=== PATIENT | female | born 1995 | race Caucasian/White ===

== ENCOUNTER → 2018-05-26 13:17 | Outpatient (CLI) | payer SELFPAY ==
[2018-05-26 15:46] LABS: Hemoglobin A1c 5.1 % (4.2-6.3)
[2018-05-26 16:48] LABS: Estradiol 106.1 pg/mL; Free T3 3.5 pg/mL (2.18-3.98); T4 Free Direct 1.14 ng/dL (0.76-1.46)
[2018-05-26 17:10] LABS: Chlamydia Trachomatis by PCR Negative (Negative); Neisserai gonorrhoeae by PCR Negative (Negative); Probe Check PASS; Sample Adequacy Control PASS; Specimen Processing Control PASS
[2018-05-27 09:16] LABS: Progesterone Level 4.92 ng/mL (See Comment)
== END ==
PROVIDERS: Visit Provider Obstetrics & Gynecology
DX: N39.0 Urinary tract infection, site not specified (principal); N92.6 Irregular menstruation, unspecified; N94.6 Dysmenorrhea, unspecified
CPT/HCPCS: 36415; 82670; 83036; 84144; 84439; 84443; 84481; 87086; 87088; 87491; 87591

== ENCOUNTER → 2021-05-16 16:15 | Outpatient (CLI) | payer OTHER, SELFPAY ==
--- NOTE | 2021-05-16 16:45 | MRI_ITS ---
STUDY: MRI LEFT ANKLE WITHOUT CONTRAST REASON FOR EXAM: Female, 25 years old.LEFT achilles pain, pain across top of foot LEFT ankle pain s/p injury TECHNIQUE: Standardized fat and water weighted pulse sequences were obtained in all 3 orthogonal planes. COMPARISON: None. FINDINGS: No marrow edema or fracture or osteochondral defect is seen. Small posterior ankle joint effusion noted. Normal subcutis adipose space. Normal posterior tibialis tendon. Normal flexor digitorum longus tendon. Normal flexor hallucis longus tendon. Normal peroneus longus and brevis tendons. Normal tibialis anterior tendon. Normal extensor hallucis longus tendon. Normal extensor digitorum longus tendons. Normal Achilles tendon and teno-osseous insertion. Normal plantar fascia. Normal plantar calcaneal tubercles. Normal intrinsic muscles of the rearfoot. Normal distal tibiofibular syndesmotic ligamentous complex. There is a complete rupture of the anterior talofibular ligament (ATFL). Normal subtalar ligaments and sinus tarsi. Normal deltoid ligamentous complexes. Normal plantar calcaneonavicular (spring) ligament. Normal tibiotalar articulation. Normal talar dome. Normal subtalar articulations. Normal talonavicular articulation. Normal calcaneocuboid articulation. Normal navicular-cuneiform articulations. MRI/Lower Ext Joint Only (Routine) IMPRESSION: 1. No marrow edema or fracture or osteochondral defect is seen. Small posterior ankle joint effusion noted. 2. Complete tear of the anterior talofibular ligament. Electronically Signed: Ty Cerna MD at 19:47 EDT , Service support ,
== END ==
PROVIDERS: Referring Provider Podiatrist Foot & Ankle Surgery; Visit Provider Podiatrist Foot & Ankle Surgery
DX: M65.272 Calcific tendinitis, left ankle and foot (principal); M77.52 Other enthesopathy of left foot and ankle
CPT/HCPCS: 73721

== ENCOUNTER 2021-05-26 17:30 | Outpatient (RCR) | payer OTHER, SELFPAY ==
--- NOTE | 2021-02-17 13:09 | HP.PTEVAL_ITS ---
Patient's Visit Information BASIL MEDINA is a 25 year old F referred to Physical Therapy by Dr. Odalis Aguila DPM with a diagnosis of L Achillies tendonitis. Date of Evaluation: 02/12/21 Physical Therapist: Yariel Nava DPT - Visit Plan Frequency: 2-3x /Week Duration: 4-6 Weeks Plan: Start with AROM of L ankle, DF stretching, ankle strengtening progressing to eccentric plantar flexion strengthening as tolerated. May use US/Dn to aid with pain control. Progress gait mechanics as tolerated. - Subjective Pt. is here today for her initial evaluation with diagnosis of L Achilles tendinitis. Pt. reports pain started in november when she had to stand on her L foot for ~8 hours during a work day. 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 She works at [employer] in the [place]. She is still working, but most a sit down job now. She reports prior to injury she was very active including biking, hiking, running. Now is not able to complete these activities. She is currently in a CAM boot, but is to start working into [employer] brace as tolerated. IMAGING: Xrays- negative, MRI: not take. MEDICATIONS: ibuprophen OTC. She c/o increased pain at distal Achilles and anterior talocrural joint. INCREASES PAIN: walking, standing, aggressive DF stretching, resting her leg on a firm surface. Pt. denies N/T. No bruising noted, no significant swelling noted. She has been stretching lightly and working on isometric ankle strengthening. She is hopeful to reduce symptom in order to get back to all recreational and work activities without limitations. - Pain L Achillies Pain Intensity (Out of 10): 3 Pain Intensity Range: 1, 5 L anterior talocrural joint Pain Intensity (Out of 10): 2 Pain Intensity Range: 1, 5 - Objective POSTURE: Pt. to has decent posture in stance. Pt. does have increased R lateral wt. shifting. She is hesitant to increase DF motion with wt. shifting. PALPATION: Pt. has high tenderness at distal Achilles tendon, along lateral ligaments of ankle and anterior talocrural joint. No deltoid lig pain, no p roximal pain. NEURO: Pt. has normal sensation, slightly hyper sensitive at lateral and anterior ankle. Normal DTR of bilateral achilles and patellar tendons. ROM: R ankle full without increase in symptoms. L ankle: DF 3 deg, PF 39deg, INV 6deg, EVR 10deg. KNee ROM- 0-0-140deg no pain. MMT: R ankle 5/5 throughout. L ankle- DF 3/5 increase NW, PF 4/5 increase NW, INV 3+/5 increase NW, EVR 3+/5 increase NW. L knee: ext 5-/5 NE, flexion 5-/5 NE. GAIT: Pt. ambulates with ASO today. Pt. lacks any rocker moment from mid foot to forefoot on he L side, resulting in minimal step through of RLE. Pt. has increased knee hyper extension during last phase of mid stance. Pt. reports increased pain both at anterior talocrural joint and at distal Achillies tendon during end range of mid stance and heel off phase. STAIRS: step to pattern only WBing through RLE, both with ascending and dsecending. Use of BHR. - Goals Goal 1:: LTG: Pt. to be I with HEP. Goal Time Frame: 2-4 Weeks Goal 2:: STG: Pt. to walk without AD without brace for unlimited distances without increase in symptoms. Goal Time Frame: 2-4 Weeks Goal 3:: STG: Pt. to ambulate with equal step length and normalized gait pattern without increase in symptoms. Goal Time Frame: 2-4 Weeks Goal 4:: STG: Pt. to have increased L ankle ROM to full without increase in symptoms. Goal Time Frame: 2-4 Weeks Goal 5:: LTG: pt. to have increased MMT of L ankle to 5/5 throughout without increase in symptoms. Goal Time Frame: 4-6 Weeks Goal 6:: LTG: Pt. to resume all work activities without increase in symptoms. Goal Time Frame: 4-6 Weeks - Rehabilitation Potential Physical Therapy Diagnosis: Pt. has signs and symptoms consistent with L Achilles tendinitis. Pt. has marked limited ROM, strength and difficulty with walking. She would benefit from PT to increase her ROM and strength in order to increase tolerance to walking and work related activities. Rehabilitation Potential: Excellent - Anticipated Interventions Patient/Client Instruction: Educate patient on: Condition, Plan of Care, Risk Factors, Benefits of Fitness Program For the Purpose of:: To improve decision making, To facilitate caregiver knowledge, To improve self management, To prevent re-injury, To improve ability to perform tasks related to life management Therapeutic Exercise to Include: Strength training, Power training, Balance training, Flexibilty training, Gait and locomotor training, Passive ROM, Active ROM For the Purpose of:: To decrease pain, To decrease swelling/inflammation, To increase ROM, To improve nutrient delivery to tissue, To increase oxygenation perfusion, To improve ability to perform ADL's, To increase tolerance to activity/condition/position, To improve gait and locomotor functions, To improve health of tissue, To decrease soft tissue restriction, To increase flexibility/ROM Manual Therapy Techniques to Include: Mobilization, Functional dry needling, Soft tissue mobilization For the Purpose of:: To increase ROM, To improve nutrient delivery to tissue, To improve gait and locomotor functions, To improve health of tissue, To decrease soft tissue restriction, To improve endurance Ultrasound (thermal/non thermal): Yes For the Purpose of:: To decrease pain, To decrease swelling/inflammation, To increase ROM Thank you for the opportunity to evaluate your patient. For Medicare and Medicare HMO plans, please review the plan of care and approve it. It will need to be FAXED BACK to us at [phone] for Medicare purposes. For Medicare only, by signing this I certify the plan of care. Please let me know if there are questions or concerns regarding this plan of care. Physician Signature: Date:
--- NOTE | 2021-03-12 17:54 | HP.PTREVAL_ITS ---
Dr. Odalis Aguila, DPM, It has been my pleasure to treat BASIL MEDINA over the last 12 visits for L Achillies tendonitis. Please see the progress note below for an update on the physical therapy plan of care! Subjective: Pt. reports having improved overall symptoms, but is still having some trouble with standing and walking. She reports having some pain in her Achilles, but is having more pain at the anterior aspect of her talocrural joint. Pt. tends to have increased pain at anterior aspect of ankle with increased DF motions, both open chain and closed. She is back to work, but limited with her recreational activities. Objective/Function: ROM: L ankle PF 44deg NE, DF 8deg mild increase NW at both achilles and anterior aspect of talocrural joint, inversion 17deg, EVR 12deg. MMT: L ankle: PF 4+/5 mild increase NE, DF 4+/5 increase NW, INV 4+/5, EVR 4+/5. 5/5 foot intrinsics of foot. 5-/5 B knee musculature. GAIT: Pt. has improved step length bilaterally being step through on both. Pt. has increased anterior ankle pain with increased R step through (L pre swing phase). She is doing less L knee hyper extension to make up for lack of L ankle DF. Descending steps in still painful, mostly anterior ankle. Pt. is overlal doing better, but is very apprehensive with increased walking and increased resistnaces with reports of having flare up when tried this at alternate facility. Pt. is to follow up with physician later this week. Plan Plan: Continue to strengthen the ankle/foot musculature and increase her tolerance to DF. Goals Goal 1:: LTG: Pt. to be I with HEP. Goal Time Frame: 2-4 Weeks Goal Progress: Goal Met Goal 2:: STG: Pt. to walk without AD without brace for unlimited distances without increase in symptoms. Goal Time Frame: 2-4 Weeks Goal Progress: Progressing Goal 3:: STG: Pt. to ambulate with equal step length and normalized gait pattern without increase in symptoms. Goal Time Frame: 2-4 Weeks Goal Progress: Progressing Goal 4:: STG: Pt. to have increased L ankle ROM to full without increase in symptoms. Goal Time Frame: 2-4 Weeks Goal Progress: Progressing Goal 5:: LTG: pt. to have increased MMT of L ankle to 5/5 throughout without increase in symptoms. Goal Time Frame: 4-6 Weeks Goal Progress: Progressing Goal 6:: LTG: Pt. to resume all work activities without increase in symptoms. Goal Time Frame: 4-6 Weeks Goal Progress: Progressing Anticipated Interventions Patient/Client Instruction: Educate patient on: Condition, Plan of Care, Risk Factors, Benefits of Fitness Program For the Purpose of:: To improve decision making, To facilitate caregiver knowledge, To improve self management, To prevent re-injury, To improve ability to perform tasks related to life management Therapeutic Exercise to Include: Strength training, Power training, Balance training, Flexibilty training, Gait and locomotor training, Passive ROM, Active ROM For the Purpose of:: To decrease pain, To decrease swelling/inflammation, To increase ROM, To improve nutrient delivery to tissue, To increase oxygenation perfusion, To improve ability to perform ADL's, To increase tolerance to activ ity/condition/position, To improve gait and locomotor functions, To improve health of tissue, To decrease soft tissue restriction, To increase flexibility/ROM Manual Therapy Techniques to Include: Mobilization, Functional dry needling, Soft tissue mobilization For the Purpose of:: To increase ROM, To improve nutrient delivery to tissue, To improve gait and locomotor functions, To improve health of tissue, To decrease soft tissue restriction, To improve endurance Ultrasound (thermal/non thermal): Yes For the Purpose of:: To decrease pain, To decrease swelling/inflammation, To increase ROM Please do not hesitate to contact me at [phone] by phone or if you have questions or concerns regarding this new plan of care! Sincerely, Yariel Nava DPT
--- NOTE | 2021-04-28 12:51 | HP.PTREVAL_ITS ---
Dr. Odalis Aguila, DPM, It has been my pleasure to treat BASIL MEDINA over the last 16 visits for L Achillies tendonitis. Please see the progress note below for an update on the physical therapy plan of care! Subjective: Pt. reports being in a lot of pain after her last visit. She thinks it was the stretching that we did. She reports increased achilles tendon pain that has not really stopped since her last visit. Objective/Function: Pt. walked into the clinic today with increased pain. I had talked to her last week after her PT session which she reports having increased pain from. I had added a standing self talocrural joint mob with a band to work on her anterior ankle pain. She believes this flared up her Achilles to the [facility] nt where she was unable to walk, only short distances. She had increased pain and increased antalgic pattern noted. She reports seeing physician later this week. I was able to complete US, but not much else secondary to pain and guarding today. Pt. had increased symptoms after light stretching and mobilization last visit. I would not have expected this type of pain from that light of stretching, but she did have some. Due to this there may be further damage to the soft tissue then previously thought. She does tend to do well with rest, but any movements tend to irritate her symptoms. Plan Plan: Pt. to be reassessed by physician later this week. Pt. had been doing very well, but has a slight set back as we added some light stretching and joint mobizations after her last visit. I will go back to starting with light activities progressing as tolerated. She might have more soft tissue issues than previously thought if she is having this severe of symptoms with light stretching. Balance/Gait/Functional tests - Balance/Special Test Scores Lower Extremity Functional Score: 46 Goals Goal 1:: LTG: Pt. to be I with HEP. Goal Time Frame: 2-4 Weeks Goal Progress: Goal Met Goal 2:: STG: Pt. to walk without AD without brace for unlimited distances without increase in symptoms. Goal Time Frame: 2-4 Weeks Goal Progress: Progressing Goal 3:: STG: Pt. to ambulate with equal step length and normalized gait pattern without increase in symptoms. Goal Time Frame: 2-4 Weeks Goal Progress: Progressing Goal 4:: STG: Pt. to have increased L ankle ROM to full without increase in symptoms. Goal Time Frame: 2-4 Weeks Goal Progress: Progressing Goal 5:: LTG: pt. to have increased MMT of L ankle to 5/5 throughout without increase in symptoms. Goal Time Frame: 4-6 Weeks Goal Progress: Progressing Goal 6:: LTG: Pt. to resume all work activities without increase in symptoms. Goal Time Frame: 4-6 Weeks Goal Progress: Progressing Anticipated Interventions Patient/Client Instruction: Educate patient on: Condition, Plan of Care, Risk Factors, Benefits of Fitness Program For the Purpose of:: To improve decision making, To facilitate caregiver knowledge, To improve self management, To prevent re-injury, To improve ability to perform tasks related to life management Therapeutic Exercise to Include: Strength training, Power training, Balance training, Flexibilty training, Gait and locomotor training, Passive ROM, Active ROM For the Purpose of:: To decrease pain, To decrease swelling/inflammation, To increase ROM, To improve nutrient delivery to tissue, To increase oxygenation perfusion, To improve ability to perform ADL's, To increase tolerance to activity/condition/position, To improve gait and locomotor functions, To improve health of tissue, To decrease soft tissue restriction, To increase flexibility/ROM Manual Therapy Techniques to Include: Mobilization, Functional dry needling, Soft tissue mobilization For the Purpose of:: To increase ROM, To improve nutrient delivery to tissue, To improve gait and locomotor functions, To improve health of tissue, To decrease soft tissue restriction, To improve endurance Ultrasound (thermal/non thermal): Yes For the Purpose of:: To decrease pain, To decrease swelling/inflammation, To increase ROM Please do not hesitate to contact me at [phone] by phone or if you have questions or concerns regarding this new plan of care! Sincerely, Yariel Nava DPT
--- NOTE | 2021-04-28 13:00 | HP.PTREVAL_ITS ---
Dr. Odalis Aguila, DPM, It has been my pleasure to treat BASIL MEDINA over the last 17 visits for L Achillies tendonitis. Please see the progress note below for an update on the physical therapy plan of care! Subjective: Pt. reports feeling a little better after her last visit. She felt like the US was helpful. Pt. reports 2/10 pain today at achilles tendon. Slight improvement with gait today. Objective/Function: Pt. reports no issues with PT this date. She had improved gait tolerance post PT. Pt. reported no adverse reaction. I talked to her about the pain she felt after stretching is not anticipated and I was suprised that light stretching would cause such severity in her symptoms. She had negative homans and no signs of rupture. Her mech of injury also does not suggest Achilles tearing, but there may be more severity of damage than previously thought due to irritability of symptoms. Patient did call back ~1 hour after PT saying here symptoms were really bad. She thinks it was due to light manual I did this date. Again with how light the activity was completed, I was again surprised at how her symptoms reacted. I instructed her to ice and elevate leg for comfort. Pt. consents. Plan Plan: Pt. to be reassessed by physician later this week. Pt. had been doing very well, but has a slight set back as we added some light stretching and joint mobizations after her last visit. I will go back to starting with light activities progressing as tolerated. She might have more soft tissue issues than previously thought if she is having this severe of symptoms with light stretching. Balance/Gait/Functional tests - Balance/Special Test Scores Lower Extremity Functional Score: 46 Goals Goal 1:: LTG: Pt. to be I with HEP. Goal Time Frame: 2-4 Weeks Goal Progress: Goal Met Goal 2:: STG: Pt. to walk without AD without brace for unlimited distances without increase in symptoms. Goal Time Frame: 2-4 Weeks Goal Progress: Progressing Goal 3:: STG: Pt. to ambulate with equal step length and normalized gait pattern without increase in symptoms. Goal Time Frame: 2-4 Weeks Goal Progress: Progressing Goal 4:: STG: Pt. to have increased L ankle ROM to full without increase in symptoms. Goal Time Frame: 2-4 Weeks Goal Progress: Progressing Goal 5:: LTG: pt. to have increased MMT of L ankle to 5/5 throughout without increase in symptoms. Goal Time Frame: 4-6 Weeks Goal Progress: Progressing Goal 6:: LTG: Pt. to resume all work activities without increase in symptoms. Goal Time Frame: 4-6 Weeks Goal Progress: Progressing Anticipated Interventions Patient/Client Instruction: Educate patient on: Condition, Plan of Care, Risk Factors, Benefits of Fitness Program For the Purpose of:: To improve decision making, To facilitate caregiver knowledge, To improve self management, To prevent re-injury, To improve ability to perform tasks related to life management Therapeutic Exercise to Include: Strength training, Power training, Balance training, Flexibilty training, Gait and locomotor training, Passive ROM, Active ROM For the Purpose of:: To decrease pain, To decrease swelling/inflammation, To increase ROM, To improve nutrient delivery to tissue, To increase oxygenation perfusion, To improve ability to perform ADL's, To increase tolerance to activity/condition/position, To improve gait and locomotor functions, To improve health of tissue, To decrease soft tissue restriction, To increase flexibility/ROM Manual Therapy Techniques to Include: Mobilization, Functional dry needling, Soft tissue mobilization For the Purpose of:: To increase ROM, To improve nutrient delivery to tissue, To improve gait and locomotor functions, To improve health of tissue, To decrease soft tissue restriction, To improve endurance Ultrasound (thermal/non thermal): Yes For the Purpose of:: To decrease pain, To decrease swelling/inflammation, To increase ROM Please do not hesitate to contact me at [phone] by phone or Fax: if you have questions or concerns regarding this new plan of care! Sincerely, Yariel Nava DPT
--- NOTE | 2021-05-26 18:09 | HP.PTDCSUM ---
It has been my pleasure to treat BASIL MEDINA referred by Dr. Giuliana Aguila, SHRUTHI, with the diagnosis of L Achillies tendonitis for a total of 23 visit(s). Discharge Date: 05/26/21 Please see the following information for a summary of their discharge status. Subjective: PATIENT REPORTS SHE GOT HER MRI RESULTS FROM DR. GIULIANA AGUILA TODAY. STATES PATIENT REPORTS DR. AGUILA SAID SHE HAS PINCHED NERVES IN HER ANKLE AND A TORN LIGAMENT. SHE WAS ISSUED A NEW ANKLE WRAP TO TRY. STATES THE DOCTOR DOES NOT WANT HER TO GO BACK IN THE BOOT. FOLLOW UP SCHEDULED IN 6 WEEKS. PATIENT REPORTS THE DOCTOR TOLD HER THAT HER EX'S WON'T CAUSE MORE TEARING. PATIENT REPORTS SHE HAS NO WORK RESTRICTIONS FROM THE DOCTOR BUT HER EMPLOYER IS HAVING HER SIT MOST OF THE TIME. PATIENT REPORTS SHE DOESN'T WANT TO TRY ANY OF THE SAME EX'S AGAIN AND THE LAST THING SHE WANTS TO DO RIGHT NOW IS IRRITATE IT MORE. STATES SHE PLANNED TO CANCEL [facility]T BUT WANTED TO JUST CHECK TO SEE IF THERAPY WOULD BE DIFFERENT NOW THAT SHE HAD THE MRI. L Achillies Pain Intensity (Out of 10): Unrated L anterior talocrural joint Pain Intensity (Out of 10): Unrated R pelvis Pain Intensity (Out of 10): 0 % Improvement: 25 Objective/Function: PATIENT IS NOT AGREEABLE TO PT AT THIS TIME. ENCOURAGED PATIENT TO CONTINUE HOME EX'S PREVIOUSLY GIVEN TOLERATED. Goal 1:: LTG: Pt. to be I with HEP. Goal Progress: Goal Met Goal 2:: STG: Pt. to walk without AD without brace for unlimited distances without increase in symptoms. Goal Progress: Progressing Goal 3:: STG: Pt. to ambulate with equal step length and normalized gait pattern without increase in symptoms. Goal Progress: Progressing Goal 4:: STG: Pt. to have increased L ankle ROM to full without increase in symptoms. Goal Progress: Progressing Goal 5:: LTG: pt. to have increased MMT of L ankle to 5/5 throughout without increase in symptoms. Goal Progress: Progressing Goal 6:: LTG: Pt. to resume all work activities without increase in symptoms. Goal Progress: Progressing Plan: D/C AT PATIENTS REQUEST. WOULD BE HAPPY TO RESUME PT IN THE FUTURE NEEDED/INDICATED IF PATIENT AGREEABLE. If there are questions or concerns regarding this patient's physical therapy, please feel free to call me at [phone]. Thank you for the referral of this patient. Sincerely, Rossana Power PT, Cert MDT Balance/Gait/Functional tests - Balance/Special Test Scores Lower Extremity Functional Score: 46
== END 2021-05-26 19:00 | disposition home or self-care (01) ==
LOC: PT 17:30
PROVIDERS: Referring Provider Podiatrist Foot & Ankle Surgery; Visit Provider Podiatrist Foot & Ankle Surgery
DX: M76.62 Achilles tendinitis, left leg (principal)
CPT/HCPCS: 97014; 97035; 97110; 97161; 97164; 97530; G0283

== ENCOUNTER → 2021-08-14 15:41 | Outpatient (CLI) | payer OTHER, SELFPAY ==
[2021-08-14 16:34] LABS: Absolute Lymphocyte Count 2.44 X10^3/uL (0.83-4.51); Absolute Neutrophil Count 6.2 X10^3/uL (2.0-7.7); Basophil# 0.08 X10^3/uL; Basophil% 0.8 % (0-1); Hematocrit 40.3 % (37-47); Hemoglobin 13.5 g/dL (12.0-15.0); Lymphocyte # 2.44 X10^3/ul (0.83-4.51); Lymphocyte % 24.6 % (19-41); Mean Corp Hgb Conc 33.5 g/dL (32-36); Mean Corpuscular Hgb 30.1 pg (27.0-32.0); Mean Platelet Vol. 10.3 fl (6.2-12.0); Monocyte# 0.73 X10^3/uL; Monocyte% 7.4 % (0-10); NRBC Flagged by Analyzer 0 % (0-5); Neutrophil # 6.24 X10^3/uL (2.7-7.7); Neutrophil % 62.8 % (47-70); Platelet Count 297 K/mm3 (150-450); RBC Distribution Width CV 12.4 % (11.6-14.6); Red Blood Count 4.48 M/mm3 (4.2-5.4); White Blood Count 9.9 K/mm3 (4.4-11.0)
[2021-08-14 17:03] LABS: ALB/GLOB Ratio 1.1 RATIO (0.9-2.4); AST(SGOT) 15 U/L (15-37); Alanine Aminotransfer ALT/SGPT 20 U/L (13-56); Albumin, Serum 4.2 g/dL (3.2-5.0); Alkaline Phosphatase 39 U/L (45-117); Anion Gap 6 (5-15); BUN 10 mg/dL (7-18); BUN/Creat Ratio 16.6 RATIO (10-20); Calcium,Total 9.6 mg/dL (8.5-10.1); Chloride 103 mmol/L (98-107); EST Glomerular Filtration Rate 127 mL/min (>60); Est Glom Filt Rate - Afr Amer 153 mL/min (>60); Globulin 3.8 g/dL (2.2-4.2); Glucose 89 mg/dL (74-106); Potassium 3.9 mmol/L (3.5-5.1); Sodium Level 137 mmol/L (136-145)
== END ==
PROVIDERS: Visit Provider Podiatrist
DX: M77.52 Other enthesopathy of left foot and ankle (principal)
CPT/HCPCS: 36415; 80053; 85025

== ENCOUNTER 2022-01-20 09:00 | Outpatient (RCR) | payer OTHER, SELFPAY ==
--- NOTE | 2021-10-27 09:27 | HP.PTEVAL_ITS ---
Patient's Visit Information BASIL MEDINA is a 26 year old F referred to Physical Therapy by RAMIRO TREJO with a diagnosis of CRPS Type1 L LE. Date of Evaluation: 10/27/21 Physical Therapist: VERONICA Mc - Visit Plan Frequency: 2-3x /Week Duration: 6 Weeks Plan: 2-3X/ week for 18 visits for AT for L foot, ankle and LE ROM, stretching, stregthening, increase weight bearing, gait training and desensitization with HEP and progress to AT and land and eventually to land based therapy. HEP: desensitization exercises, standing weight shift onto L LE fw/bw. side to side and seated heel and toe raises. - Subjective In November 2020 she had an injury at work. She had injured her foot and ankle and was being treating for tendonitis and then did and MRI abd had a torn ATFL that would not heal and was put in a brace and is put in a brace and diagnosed with CRPS. She has been in a walking boot/brace for a few months. Currently she feels that she is continuing to get worse. She has a lot more pain. She can move her foot less and less and sometimes her foot will go into a spasm and her foot will start shaking when it gets cold. It feels weak. She always wears the brace and her foot is very sesitive. She is on amatriptiline and litocaine patches and she is scheduled for a block. Pt is concerned that land therapy will be too rough and might have to stick to pool therapy. She is only moving her foot into DF/PF but can be really painful and sometimes she can not even do that. She reports no N&T. She has mostly burning pain and reports that her pain is now acorss her foot and ankle and up to her thigh. She is on light duty and [employer]. She has days that she can not work due to so much pain and gets notes if there are days she can not go to work due to the pain. She has days when she can go up and down the stairs carefully and other days that she can not go up and down the stairs at her house. - Pain L foot pain Pain Intensity (Out of 10): 5 Pain Intensity Range: 10 L leg pain Pain Intensity (Out of 10): 4 Pain Intensity Range: 7 - Objective Discussed starting with soft material and work way up in different materials to desensitize left foot everyday. Gait: walks with a boot on the L foot with very slow steppage gait and no stride length. Pt hops around on her R leg and does not like to let her L foot contact the ground. Light touch: along the entire foot very sensitive and pulls aways due to pain. L ankle AROM: DF -5 deg radha from Neutral, PF 30 degrees, 14 degrees INV, 5 degrees EV. 12, 60, 44, 45. L MMT: - Balance/Special Test Scores Lower Extremity Functional Score: 25 - Goals Goal 1:: I HEP Goal Time Frame: 8-12 Weeks Goal 2:: Be able to walk with normal heel to toe gait pattern with normal stride with or without the boot back to the treatment rooms and thoughout the dept Goal Time Frame: 8-12 Weeks Goal 3:: Be able to put on socks and shoes with less than 2/10. 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 Goal Time Frame: 8-12 Weeks Goal 5:: Be able to put L foot down on the floor to walk from the chair to mat table Goal Time Frame: 8-12 Weeks - Rehabilitation Potential Rehabilitation Potential: Fair - Anticipated Interventions Patient/Client Instruction: Educate patient on: Condition, Plan of Care For the Purpose of:: To decrease pain, To increase ROM, To improve nutrient delivery to tissue, To improve muscle performance and motor function, To improve ability to perform ADL's, To increase tolerance to activity/condition/position, To improve performance and independence with ADL's, To improve ability of physical actions for home/community/work/leisure, To improve gait and locomotor functions, To improve health of tissue, To decrease soft tissue restriction, To increase flexibility/ROM, To improve balance, To improve safety with gait Therapeutic Exercise to Include: Strength training, Endurance training, Balance training, Postural training, Flexibilty training, Gait and locomotor training, Passive ROM, Active ROM For the Purpose of:: To decrease pain, To decrease swelling/inflammation, To increase ROM, To improve nutrient delivery to tissue, To improve muscle performance and motor function, To improve ability to perform ADL's, To increase tolerance to activity/condition/position, To improve performance and independence with ADL's, To decrease level of supervision to perform tasks, To improve ability of physical actions for home/community/work/leisure, To improve gait and locomotor functions, To improve health of tissue, To decrease soft tissue restriction, To increase flexibility/ROM, To improve balance, To improve safety with gait Functional Training to Include: Gait training For the Purpose of:: To improve gait and locomotor functions, To improve safety with gait Manual Therapy Techniques to Include: Mobilization, Passive ROM, Soft tissue mobilization For the Purpose of:: To decrease pain, To increase ROM, To improve nutrient delivery to tissue, To improve muscle performance and motor function, To improve ability to perform ADL's, To increase tolerance to activity/condition/position, To improve gait and locomotor functions, To improve health of tissue, To decrease soft tissue restriction, To increase flexibility/ROM, To improve balance, To improve safety with gait Thank you for the opportunity to evaluate your patient. For Medicare and Medicare HMO plans, please review the plan of care and approve it. It will need to be FAXED BACK to us at [phone] for Medicare purposes. For Medicare only, by signing this I certify the plan of care. Please let me know if there are questions or concerns regarding this plan of care. Physician Signature: Date:
--- NOTE | 2021-12-31 16:24 | HP.PTREVAL ---
RAMIRO TREJO, It has been my pleasure to treat BASIL MEDINA over the last 18 visits for CRPS Type1 L LE. Please see the progress note below for an update on the physical therapy plan of care! Subjective: Pt reports that the spasms could come from the RSD. She had a nerve block December 15 and she is able to walk much better and her spasms are much better. Her next nerve block is around January 26. Pt is able to walk much better and a lot easier to go up stairs. On a good day she can tolerate being on ankle for an hour and gets tired. She still gets flares on a bad day and they are less often and she can not tolerated being on her leg. She is walking with a brace that goes over her shoe. If she pushes it so hard in the pool then she has increased sharp pains in that area. Pt still gets leg pain occ. Since the nerve block is a 6/10. Weather changes make it worse. Pt is now able to wear shoe unless she is in a flare Objective/Function: 9 degrees DF. 21 degrees PF. Gait: walks with more normal gait pattern with shoe on and external AFO brace Plan Plan: *Progress all to I pool program. Has been given her own page. Continue 2-3X/ week for 18 visits for AT for L foot, ankle and LE ROM, stretching, stregthening, increase weight bearing, gait training and desensitization with HEP and progress to AT and land and eventually to land based therapy. HEP: desensitization exercises, standing weight shift onto L LE fw/bw. side to side and seated heel and toe raises. Balance/Gait/Functional tests - Balance/Special Test Scores Lower Extremity Functional Score: 27 Goals Goal 1:: I HEP Goal Time Frame: 8-12 Weeks Goal Progress: Goal Met Goal 2:: Be able to walk with normal heel to toe gait pattern with normal stride with or without the boot back to the treatment rooms and throughout the dept. Goal Time Frame: 8-12 Weeks Goal Progress: Progressing Goal 3:: Be able to put on socks and shoes with less than 2/10. 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 Goal Time Frame: 8-12 Weeks Goal Progress: Goal Met Goal 5:: Be able to put L foot down on the floor to walk from the chair to mat table Goal Time Frame: 8-12 Weeks Anticipated Interventions Patient/Client Instruction: Educate patient on: Condition, Plan of Care For the Purpose of:: To decrease pain, To increase ROM, To improve nutrient delivery to tissue, To improve muscle performance and motor function, To improve ability to perform ADL's, To increase tolerance to activity/condition/position, To improve performance and independence with ADL's, To improve ability of physical actions for home/community/work/leisure, To improve gait and locomotor functions, To improve health of tissue, To decrease soft tissue restriction, To increase flexibility/ROM, To improve balance, To improve safety with gait Therapeutic Exercise to Include: Strength training, Endurance training, Balance training, Postural training, Flexibilty training, Gait and locomotor training, Passive ROM, Active ROM For the Purpose of:: To decrease pain, To decrease swelling/inflammation, To increase ROM, To improve nutrient delivery to tissue, To improve muscle performance and motor function, To improve ability to perform ADL's, To increase tolerance to activity/condition/position, To improve performance and independence with ADL's, To decrease level of supervision to perform tasks, To improve ability of physical actions for home/community/work/leisure, To improve gait and locomotor functions, To improve health of tissue, To decrease soft tissue restriction, To increase flexibility/ROM, To improve balance, To improve safety with gait Functional Training to Include: Gait training For the Purpose of:: To improve gait and locomotor functions, To improve safety with gait Manual Therapy Techniques to Include: Mobilization, Passive ROM, Soft tissue mobilization For the Purpose of:: To decrease pain, To increase ROM, To improve nutrient delivery to tissue, To improve muscle performance and motor function, To improve ability to perform ADL's, To increase tolerance to activity/condition/position, To improve gait and locomotor functions, To improve health of tissue, To decrease soft tissue restriction, To increase flexibility/ROM, To improve balance, To improve safety with gait Please do not hesitate to contact me at [phone] by phone or if you have questions or concerns regarding this new plan of care! Sincerely, Zahra Gonzales MPT
--- NOTE | 2022-01-20 09:28 | HP.PTDCSUM ---
It has been my pleasure to treat BASIL MEDINA referred by RAMIRO TREJO, with the diagnosis of CRPS Type1 L LE for a total of 27 visit(s). Discharge Date: 01/20/22 Please see the following information for a summary of their discharge status. Subjective: Pt reports that her ankle is better since the nerve blocks. She can do 30 min to and hour and then her ankle gets so sore and painful for the rest of the day. She is getting another nerve block January 26. said her ankle is not strong enough to get out of the brace and to continue with PT on her own until it is strong enough. She has gotten all of her exercises and feels comfortable getting [facility]. She will alternate days in the pool and band therapy. She still walks with the walking brace all the time. She still does not put her foot down to walk even a short distance without her brace on. L foot pain Pain Intensity (Out of 10): 4 L leg pain Pain Intensity (Out of 10): 4 % Improvement: 35 Objective/Function: Gait with boot on: Walks with slight decreased stance time on the L with her boot on. Pt AROM of her L ankle AROM is WFL. Walking from mat table to chair: Pt does not even trust it enough to put her foot on the ground without her brace on Goal 1:: I HEP Goal Progress: Goal Met Goal 2:: Be able to walk with normal heel to toe gait pattern with normal stride with or without the boot back to the treatment rooms and throughout the dept. Goal Progress: Progressing Goal 3:: Be able to put on socks and shoes with less than 2/10. 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 New sheet with exercises was given to the patient today. Discharge Comments: DC PT to I AT program If there are questions or concerns regarding this patient's physical therapy, please feel free to call me at [phone]. Thank you for the referral of this patient. Sincerely, Zahra Gonzales, MPT Balance/Gait/Functional tests - Balance/Special Test Scores Lower Extremity Functional Score: 39
== END 2022-01-20 10:49 | disposition home or self-care (01) ==
LOC: PT 09:00
DX: G90.522 Complex regional pain syndrome I of left lower limb (principal)
CPT/HCPCS: 97110; 97113; 97162; 97530

== ENCOUNTER → 2022-09-10 | Outpatient (CLI) | payer SELFPAY ==
--- NOTE | 2022-09-10 16:23 | MRI_ITS ---
STUDY: MRI LEFT ANKLE WITHOUT CONTRAST REASON FOR EXAM: Female, 27 years old. LIGAMENT SPRAIN TECHNIQUE: Standardized fat and water weighted pulse sequences were obtained in all 3 orthogonal planes. COMPARISON: May 16, 2021 FINDINGS: Normal subcutis adipose space. There is mild marrow edema of the distal tibia and posterior talus, series 10 images 06/18 and 09/17. Normal posterior tibialis tendon. Normal flexor digitorum longus tendon. Normal flexor hallucis longus tendon. Normal peroneus longus and brevis tendons. Normal tibialis anterior tendon. Normal extensor hallucis longus tendon. Normal extensor digitorum longus tendons. Normal Achilles tendon and teno-osseous insertion. Normal plantar fascia. Normal plantar calcaneal tubercles. Normal intrinsic muscles of the rearfoot. Normal distal tibiofibular syndesmotic ligamentous complex. There is thinning of the anterior talofibular ligament consistent with a remote sprain. Improvement in previously noted tear. Normal subtalar ligaments and sinus tarsi. Normal deltoid ligamentous complexes. Normal plantar calcaneonavicular (spring) ligament. Small joint effusion of the tibiotalar articulation. Normal talar dome. Normal subtalar articulations. Normal talonavicular articulation. Normal calcaneocuboid articulation. Normal navicular-cuneiform articulations. MRI/Lower Ext Joint Only (Routine) IMPRESSION: Improvement of previously noted ankle sprain. Contusion versus stress injury of the distal tibia and posterior talus. Electronically Signed: Alli Cassidy MD at 9:52 EST ,
== END | disposition home or self-care (01) ==
PROVIDERS: PCP Family Medicine; Visit Provider Podiatrist
DX: S93.492A Sprain of other ligament of left ankle, initial encounter (principal); M25.472 Effusion, left ankle; R60.0 Localized edema
CPT/HCPCS: 73721

== ENCOUNTER 2022-12-25 07:00 | Outpatient (RCR) | payer OTHER, SELFPAY ==
--- NOTE | 2022-11-23 08:21 | HP.PTEVAL_ITS ---
Patient's Visit Information BASIL MEDINA is a 27 year old F referred to Physical Therapy by Dr. Tone Shepard DPM with a diagnosis of L CRP ankle foot , ATFL tear. Date of Evaluation: 11/23/22 Physical Therapist: Wil Perez DPT, OCS, CSCS - Visit Plan Frequency: 3x /Week Duration: 4-6 Weeks Plan: 3x/week for 4 weeks for. 1. progression of ankle ROM L and PROM and mobs as needed. Desensitization massageand WB barefoot to L ankle/foot. 2. strength L ankle and proprioceptive exercises. 3. Gait training, stair training. progrfession of HEp - Subjective RSD in l leg from ankle injury at work. That was November of 2020. 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 Has had a lot of pain since then. Pain is improving but is worse with activity , weather fluctuations. Pain is in the whole L foot and sometimes radiate sup to thigh. 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 Tolerates that better but still difficult some days on weather fluctuating days. Uses pain medicine sometimes to sleeps/. Basic ADLs are effected. Wore brace until last week and started working on steps. Tried a boot recently and put in brace. Had brace for a year and MRI showed torn ATFL. Just started steps, doing better since she started. Hobbies: not anymore, cannot ride nikes or hike. - Pain L leg Pain Intensity (Out of 10): 2 Pain Intensity Range: 0, 2, 6 - Objective I gait but avoids push off L, transfers bed and chair I, steps are reciprocal a nd avoids DF descending causing antalgia, ascending appears weak and hesitant. SLS L 2-3 seconds and R 30 +. Sensitive to stand on L in bare foot, better in shoe. AROM DF L 0 R 5, PF 50 B, inversion adn eversion WFL abut hesitant and poor control inversion on L. PROM full B, tight end range inversion. strength 4- L and 4 R. Shaky control L. reflexes 2/3 patella and achilles B. Sensation: Sensitive lightly to touch L foot. - Balance/Special Test Scores Lower Extremity Functional Score: 34 - Goals Goal 1:: Full AROM L ankle without shakyness and 4+/5 strength L ankle Goal Time Frame: 4-6 Weeks Goal 2:: Pt ambulate without gait deviations Goal Time Frame: 4-6 Weeks Goal 3:: Steps reciprocal without rail Goal Time Frame: 4-6 Weeks Goal 4:: I appropriate management of condition HEP Goal Time Frame: 4-6 Weeks Goal 5:: Pt feel 75% better overall in function of L ankle Goal Time Frame: 4-6 Weeks Goal 6:: 54 LEFS score Goal Time Frame: 4-6 Weeks - Rehabilitation Potential Physical Therapy Diagnosis: l foot ankle dysfunction from previous injuury. Rehabilitation Potential: Fair - Anticipated Interventions Patient/Client Instruction: Educate patient on: Condition, Plan of Care For the Purpose of:: To decrease pain, To increase ROM, To improve nutrient delivery to tissue, To improve muscle performance and motor function Therapeutic Exercise to Include: Strength training, Balance training, Postural training, Flexibilty training, Gait and locomotor training, Neuromotor deve lopment For the Purpose of:: To decrease pain, To increase ROM, To improve nutrient delivery to tissue, To increase oxygenation perfusion, To increase tolerance to activity/condition/position, To improve performance and independence with ADL's, To improve gait and locomotor functions Manual Therapy Techniques to Include: Mobilization, Soft tissue mobilization For the Purpose of:: To increase ROM, To improve nutrient delivery to tissue Thank you for the opportunity to evaluate your patient. For Medicare and Medicare HMO plans, please review the plan of care and approve it. It will need to be FAXED BACK to us at [phone] for Medicare purposes. For Medicare only, by signing this I certify the plan of care. Please let me know if there are questions or concerns regarding this plan of care. Physician Signature: Date:
--- NOTE | 2022-12-25 08:39 | HP.PTDCSUM ---
It has been my pleasure to treat BASIL MEDINA referred by Dr. Tone Shepard, SHRUTHI, with the diagnosis of L CRP ankle foot, ATFL tear for a total of 12 visit(s). Discharge Date: 12/25/22 Please see the following information for a summary of their discharge status. Subjective: Better stability and strength. Walked a mile the other day and nerve pain flared for days at 6/10. that is the furthest I have walked in a long time. Otherwise still gets nerve pain 2/10 in the whole let leg. Overall better strength adn stability but still painful. Saw dr. Shepard and thought it was more stable. She is to follow up with pain management. HEP: band pulls and ROM and stretches. To pain management soon. L leg Pain Intensity (Out of 10): 2 Left arch Pain Intensity (Out of 10): 0 % Improvement: 10 Objective/Function: Full aROM without pain today. strength 4/5 in ankle without pain this am. Avoids push off at end of stance phase in gait and avoids forefoot WB in descending steps. Corrected with VC. Goal 1:: Full AROM L ankle without shakyness and 4+/5 strength L ankle Goal Progress: Goal Met Goal 2:: Pt ambulate without gait deviations Goal 3:: Steps reciprocal without rail Goal 4:: I appropriate management of condition HEP Goal Progress: Goal Met Goal 5:: Pt feel 75% better overall in function of L ankle Goal Progress: Progressing Goal 6:: 54 LEFS score Goal Progress: Progressing Plan: d/c, to pain management soon. If there are questions or concerns regarding this patient's physical therapy, please feel free to call me at [phone]. Thank you for the referral of this patient. Sincerely, Wil Perez, DPT, OCS, CSCS Balance/Gait/Functional tests - Balance/Special Test Scores Lower Extremity Functional Score: 41
== END 2022-12-25 14:28 | disposition home or self-care (01) ==
LOC: PT 07:00
PROVIDERS: PCP Family Medicine; Referring Provider Podiatrist; Visit Provider Podiatrist
DX: G90.50 Complex regional pain syndrome I, unspecified (principal); M77.52 Other enthesopathy of left foot and ankle; M77.8 Other enthesopathies, not elsewhere classified
CPT/HCPCS: 97110; 97140; 97161; 97164

== ENCOUNTER 2024-02-09 18:30 | Outpatient (RCR) | payer BC, MEDICAID, SELFPAY ==
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
== END 2024-02-09 19:00 | disposition home or self-care (01) ==
LOC: PT 18:30
PROVIDERS: PCP Family Medicine; Referring Provider Specialist; Visit Provider Specialist
DX: M54.50 Low back pain, unspecified (principal)
CPT/HCPCS: 97110; 97161

== ENCOUNTER → 2024-07-24 | Outpatient (CLI) | payer BC, SELFPAY ==
--- OUTSIDE RECORDS SUMMARY | 2024-07-24 09:15 | XMS RPT_ITS | CCD ---
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 Result for tcdA and tcdB are not reported separately. Gordon C. difficile Assay results should not be used as the sole basis for diagnosis, treatment, or patient management decisions and should be interpreted in conjunction with other clinical and laboratory findings. Immunology - Serology Molecular Order Comments O1: Clostridium difficile toxin A and B (PCR) (AO) ok to cancel any duplicate orders, thanks O2: Stool Gastrointestinal Panel ok to cancel any duplicate orders, thanks Interpretive Data ^1: Stool GI Comment Virus, bacteria, and parasite nucleic acid may persist in vivo independently of organism viability. Negative Film Array GI panel results in the setting of clinical illness compatible with gastroenteritis may be due to infection by pathogens that are not detected by this test. False negatives may occur due to genetic variability in the region targeted by the primers. MICRO - Microbiology PROCEDURE: Clostridium difficile Toxin Confirmation [^2 *2] SOURCE: Stool BODY SITE: COLLECTED DATE/TIME: 02/06/2023 08:57 EDT RECEIVED DATE/TIME: 02/07/2023 21:18 EDT START DATE/TIME: 02/07/2023 21:18 EDT FREE TEXT SOURCE: FINAL REPORTS Final Report [] Verified Date/Time/Personnel: 02/07/2023 23:32 EDT Clostridium difficile toxin present Toxin A/B Confirmatory Assay: Positive Positive for toxigenic C. difficile. (active toxin production present) Infection Control has been notified. Interpretive Data ^2: Clostridium difficile Toxin Confirmation The C.DIFF QUIK CHECK COMPLETE TEST is used to detect C. difficile antigen and toxin(s) in fecal specimens. The test confirms the presence of toxin in feces and this information should be taken under consideration by the physician in light of the clinical history and physical examination of the patient. Fecal specimens are extremely complex. Optimal results with the C. DIFF CHECK COMPLETE test are obtained with specimens that are less than 24 hours old. No data exists on the effects of colonic washes, barium enemas, laxitive, or bowel preperations on the performance of the C. DIFF QUICK CHECK COMPLETE test. All of these procedures can result in extensive dilution or the presence of additives that may affect test performance. Performing Locations *1: This test was performed at: [id number] [place], [place], [facility]- , *2: This test was performed at: [facility] [address] [place] [address], [facility] , Normal [facility] ([place]) Comment on above: Performed By: #### C DIFFAO, OVAP ####[place] [address]#### STGIPCR ####[place] [address] .Auto Diffon 02-06-2023 Basophil, Absolute 0.1 10 3/mcL Normal 0.0-0.2 [facility] ([place]) Comment on above: Performed By: #### G FR, TSH, CBC, ADIFF, GINGER, LIP, ANEU, CMP ####[place] [address] Basophils/100 WBC (Bld) 0.7 % Normal 0.0-2.5 [facility] ([place]) Comment on above: Performed By: #### G FR, TSH, CBC, ADIFF, GINGER, LIP, ANEU, CMP ####[place] [address] Eosinophil, Absolute 0.5 10 3/mcL High 0.0-0.4 [facility] ([place]) Comment on above: Performed By: #### G FR, TSH, CBC, ADIFF, GINGER, LIP, ANEU, CMP ####[address], [place] [address] Eosinophils/100 WBC (Bld) 5.3 % Normal 0.0-7.0 [facility] ([place]) Comment on above: Performed By: #### G FR, TSH, CBC, ADIFF, GINGER, LIP, ANEU, CMP ####[address] [place], [place] [address] Lymphocyte, Absolute 1.0 10 3/mcL Normal 0.8-3.9 [facility] ([place]) Comment on above: Performed By: #### G FR, TSH, CBC, ADIFF, GINGER, LIP, ANEU, CMP ####[place] [address] [place], [place] [address] Lymphocytes/100 WBC (Bld) 11.9 % Normal 10.0-50.0 [facility] ([place]) Comment on above: Performed By: #### G FR, TSH, CBC, ADIFF, GINGER, LIP, ANEU, CMP ####[place] [address] [place], [place] [address] Monocyte, Absolute 0.9 10 3/mcL Normal 0.2-1.0 [facility] ([place]) Comment on above: Performed By: #### G FR, TSH, CBC, ADIFF, GINGER, LIP, ANEU, CMP ####[place] [address] [place], [place] [address] Monocytes/100 WBC (Bld) 10.4 % Normal 1.7-13.0 [facility] ([place]) Comment on above: Performed By: #### G FR, TSH, CBC, ADIFF, GINGER, LIP, ANEU, CMP ####[place] [address] [place], [place] [address] Neutrophils/100 WBC (Bld) 71.7 % Normal 37.0-80.0 [facility] ([place]) Comment on above: Performed By: #### G FR, TSH, CBC, ADIFF, GINGER, LIP, ANEU, CMP ####[place] [address] [place], [place] [address] .GFRon 02-06-2023 GFR 108 ml/min/1.73sqm Normal [facility] ([place]) Comment on above: Result Comment: GFR Population mean for , Non- Americans Ages 20-29 = 116 mL/min/1.73 sq.m. Ages 30-39 = 107 mL/min/1.73 sq.m. Ages 40-49 = 99 mL/min/1.73 sq.m. Ages 50-59 = 93 mL/min/1.73 sq.m. Ages 60-69 = 85 mL/min/1.73 sq.m. Ages 70+ = 75 mL/min/1.73 sq.m. Chronic Kidney Disease: Less than 60 mL/min/1.73 square meters End Stage Renal Disease: Less than 15 mL/min/1.73 square meters Performed By: #### G FR, TSH, CBC, ADIFF, GINGER, LIP, ANEU, CMP ####[address] [place], [place] [address] GFR Non- 89 ml/min/1.73sqm Normal [facility] ([place]) Comment on above: Result Comment: GFR Population mean for , Non- Americans Ages 20-29 = 116 mL/min/1.73 sq.m. Ages 30-39 = 107 mL/min/1.73 sq.m. Ages 40-49 = 99 mL/min/1.73 sq.m. Ages 50-59 = 93 mL/min/1.73 sq.m. Ages 60-69 = 85 mL/min/1.73 sq.m. Ages 70+ = 75 mL/min/1.73 sq.m. Chronic Kidney Disease: Less than 60 mL/min/1.73 square meters End Stage Renal Disease: Less than 15 mL/min/1.73 square meters Performed By: #### G FR, TSH, CBC, ADIFF, GINGER, LIP, ANEU, CMP ####[address] [place], [place] [address] .NEUABSon 02-06-2023 Neutrophil, Absolute 6.2 10 3/mcL Normal 2.9-6.2 [facility] ([place]) Comment on above: Performed By: #### G FR, TSH, CBC, ADIFF, GINGER, LIP, ANEU, CMP ####[address] [place], [place] [address] AMYon 02-06-2023 Amylase [Catalytic activity/Vol] 42 U/L Normal 25-115 [facility] ([place]) Comment on above: Performed By: #### G FR, TSH, CBC, ADIFF, GINGER, LIP, ANEU, CMP ####[address] [place], [place] [address] CBCon 02-06-2023 Erythrocyte distribution width (RBC) [Ratio] 13.3 % Normal 11.5-14.5 [facility] ([place]) Comment on above: Performed By: #### G FR, TSH, CBC, ADIFF, GINGER, LIP, ANEU, CMP ####[address] [place], [place] [address] Hematocrit (Bld) [Volume fraction] 38.6 % Normal 37.0-47.0 [facility] ([place]) Comment on above: Performed By: #### G FR, TSH, CBC, ADIFF, GINGER, LIP, ANEU, CMP ####[address] [place], [place] [address] Hgb 13.1 G/dL Normal 12.0-16.0 [facility] ([place]) Comment on above: Performed By: #### G FR, TSH, CBC, ADIFF, GINGER, LIP, ANEU, CMP ####[address] [place], [place] [address] MCH (RBC) [Entitic mass] 29.4 pg Normal 27.0-31.2 [facility] ([place]) Comment on above: Performed By: #### G FR, TSH, CBC, ADIFF, GINGER, LIP, ANEU, CMP ####[address] [place], [place] [address] MCHC 33.9 G/dL Normal 33.0-37.0 [facility] ([place]) Comment on above: Performed By: #### G FR, TSH, CBC, ADIFF, GINGER, LIP, ANEU, CMP ####[address] [place], [place] [address] MCV (RBC) [Entitic vol] 86.8 fL Normal 80.0-94.0 [facility] ([place]) Comment on above: Performed By: #### G FR, TSH, CBC, ADIFF, GINGER, LIP, ANEU, CMP ####[address] [place], [place] [address] Platelet 253 10 3/mcL Normal 130-400 Pending sale to [facility] ([place]) Comment on above: Performed By: #### G FR, TSH, CBC, ADIFF, GINGER, LIP, ANEU, CMP ####[address] [place], [place] [address] Platelet mean volume (Bld) [Entitic vol] 8.0 fL Normal 7.4-10.4 Pending sale to [facility] ([place]) Comment on above: Performed By: #### G FR, TSH, CBC, ADIFF, GINGER, LIP, ANEU, CMP ####[address] [place], [place] [address] RBC 4.45 10 6/mcL Normal 4.20-5.40 [facility] ([place]) Comment on above: Performed By: #### G FR, TSH, CBC, ADIFF, GINGER, LIP, ANEU, CMP ####[address] [place], [place] [address] WBC 8.6 10 3/mcL Normal 4.6-10.8 Pending sale to [facility] ([place]) Comment on above: Performed By: #### G FR, TSH, CBC, ADIFF, GINGER, LIP, ANEU, CMP ####[address] [place], [place] [address] CDIFFAOon 02-06-2023 Clostridium difficile toxin A/B PCR Positive Abnormal Negative [facility] ([place]) Comment on above: Order Comment: ok to cancel any duplicate orders, thanks Performed By: #### C DIFFAO, OVAP ####[facility] [place] [id number]#### STGIPCR ####[address] [address] Clostridium difficile toxin A/B PCR Int Normal [facility] ([place]) Comment on above: Order Comment: ok to cancel any duplicate orders, thanks Result Comment: Gibran luu C. difficile Positive is based on detection of the tcdA and/or tcdB target. Result for tcdA and tcdB are not reported separately. [facility] C. difficile Assay results should not be used as the sole basis for diagnosis, treatment, or patient management decisions and should be interpreted in conjunction with other clinical and laboratory findings. See Below Performed By: #### C DIFFAO, OVAP ####[facility] [place], [place] [address]#### STGIPCR ####[place] [address] CMPon 02-06-2023 Albumin Level 3.9 G/dL Normal 3.5-5.0 [facility] ([place]) Comment on above: Performed By: #### G FR, TSH, CBC, ADIFF, GINGER, LIP, ANEU, CMP ####[address] [place], [place] [address] Albumin/Globulin [Mass ratio] 1.4 {ratio} Normal 1.1-2.5 [facility] ([place]) Comment on above: Performed By: #### G FR, TSH, CBC, ADIFF, GINGER, LIP, ANEU, CMP ####[facility] [place], [place] [address] ALP [Catalytic activity/Vol] 56 U/L Normal 40-135 [facility] ([place]) Comment on above: Performed By: #### G FR, TSH, CBC, ADIFF, GINGER, LIP, ANEU, CMP ####[facility] [place], [place] [address] ALT [Catalytic activity/Vol] 29 U/L Normal 14-59 [facility] ([place]) Comment on above: Performed By: #### G FR, TSH, CBC, ADIFF, GINGER, LIP, ANEU, CMP ####[facility] [place], [place] [address] AST [Catalytic activity/Vol] 17 U/L Normal 10-40 [facility] ([place]) Comment on above: Performed By: #### G FR, TSH, CBC, ADIFF, GINGER, LIP, ANEU, CMP ####[facility] [place], [place] [address] Bili Total 0.3 mg/dL Normal 0.2-1.0 [facility] ([place]) Comment on above: Result Comment: Use of this assay is not recommended for patients undergoing treatment with eltrombopag due to the potential for falsely elevated results. Performed By: #### G FR, TSH, CBC, ADIFF, GINGER, LIP, ANEU, CMP ####[address] [place], [place] [address] BUN/Creatinine Ratio 13 ratio Normal 7-27 [facility] ([place]) Comment on above: Performed By: #### G FR, TSH, CBC, ADIFF, GINGER, LIP, ANEU, CMP ####[address] [place], [place] [address] Calcium [Mass/Vol] 9.2 mg/dL Normal 8.4-10.2 [facility] ([place]) Comment on above: Performed By: #### G FR, TSH, CBC, ADIFF, GINGER, LIP, ANEU, CMP ####[address] [place], [place] [address] Chloride [Moles/Vol] 103 mmol/L Normal 98-107 [facility] ([place]) Comment on above: Performed By: #### G FR, TSH, CBC, ADIFF, GINGER, LIP, ANEU, CMP ####[address] [place], [place] [address] CO2 [Moles/Vol] 30 mmol/L High 22-29 [facility] ([place]) Comment on above: Performed By: #### G FR, TSH, CBC, ADIFF, GINGER, LIP, ANEU, CMP ####[address] [place], [place] [address] Creatinine [Mass/Vol] 0.77 mg/dL Normal 0.55-1.02 [facility] ([place]) Comment on above: Performed By: #### G FR, TSH, CBC, ADIFF, GINGER, LIP, ANEU, CMP ####[address] [place], [place] [address] Electrolyte Balance 6.0 mEq/L Normal 4.0-15.0 [facility] ([place]) Comment on above: Performed By: #### G FR, TSH, CBC, ADIFF, GINGER, LIP, ANEU, CMP ####[address] [place], [place] [address] Globulin 2.8 G/dL Normal [facility] ([place]) Comment on above: Performed By: #### G FR, TSH, CBC, ADIFF, GINGER, LIP, ANEU, CMP ####[address] [place], [place] [address] Glucose [Mass/Vol] 100 mg/dL Normal 70-105 [facility] ([place]) Comment on above: Performed By: #### G FR, TSH, CBC, ADIFF, GINGER, LIP, ANEU, CMP ####[address] [place], [place] [address] Potassium [Moles/Vol] 4.2 mmol/L Normal 3.5-5.1 [facility] ([place]) Comment on above: Performed By: #### G FR, TSH, CBC, ADIFF, GINGER, LIP, ANEU, CMP ####[address] [place], [place] [address] Sodium [Moles/Vol] 139 mmol/L Normal 136-145 [facility] ([place]) Comment on above: Performed By: #### G FR, TSH, CBC, ADIFF, GINGER, LIP, ANEU, CMP ####[address] [place], [place] [address] Total Protein 6.7 G/dL Normal 6.4-8.2 [facility] ([place]) Comment on above: Performed By: #### G FR, TSH, CBC, ADIFF, GINGER, LIP, ANEU, CMP ####[address] [place], [place] [address] Urea nitrogen [Mass/Vol] 10 mg/dL Normal 7-18 [facility] ([place]) Comment on above: Performed By: #### G FR, TSH, CBC, ADIFF, GINGER, LIP, ANEU, CMP ####[address] [place], [place] [address] LABORATORYOrdered By: Keiry Clayton on 02-06-2023 Adenovirus 40+41 DNA NIESHA+non-probe Ql (Stl) Not Detected *NA* (02/06/23 8:57 AM) Invalid Interpretation Code Not Detected AH Auto Microbiology GL SS Astrovirus subtypes 1-8 RNA NIESHA+non-probe Ql (Stl) Not Detected *NA* (02/06/23 8:57 AM) Invalid Interpretation Code Not Detected AH Auto Microbiology GL SS C. cayetanensis DNA NIESHA+non-probe Ql (Stl) Not Detected *NA* (02/06/23 8:57 AM) Invalid Interpretation Code Not Detected AH Auto Microbiology GL SS C. coli+jejuni+upsaliens is DNA NIESHA+non-probe Ql (Stl) Not Detected *NA* (02/06/23 8:57 AM) Invalid Interpretation Code Not Detected AH Auto Microbiology GL SS Cryptosporidium sp DNA NIESHA+non-probe Ql (Stl) Not Detected *NA* (02/06/23 8:57 AM) Invalid Interpretation Code Not Detected AH Auto Microbiology GL SS E. coli enteroaggregative Ambar plasmid aggR+aatA genes NIESHA+non-probe Ql (Stl) Not Detected *NA* (02/06/23 8:57 AM) Invalid Interpretation Code Not Detected AH Auto Microbiology GL SS E. coli enteropathogenic eae gene NIESHA+non-probe Ql (Stl) Detected *ABN* (02/06/23 8:57 AM) Invalid Interpretation Code Not Detected AH Auto Microbiology GL SS E. coli enterotoxigenic ltA+st1a+st1b genes NIESHA+non-probe Ql (Stl) Not Detected *NA* (02/06/23 8:57 AM) Invalid Interpretation Code Not Detected AH Auto Microbiology GL SS E. coli O157 DNA NIESHA+non-probe Ql (Stl) Not Applicable (02/06/23 8:57 AM) Invalid Interpretation Code Not Detected AH Auto Microbiology GL SS E. coli stx1+stx2 genes NIESHA+non-probe Ql (Stl) Not Detected *NA* (02/06/23 8:57 AM) Invalid Interpretation Code Not Detected AH Auto Microbiology GL SS E. histolytica DNA NIESHA+non-probe Ql (Stl) Not Detected *NA* (02/06/23 8:57 AM) Invalid Interpretation Code Not Detected AH Auto Microbiology GL SS G. lamblia DNA NIESHA+non-probe Ql (Stl) Not Detected *NA* (02/06/23 8:57 AM) Invalid Interpretation Code Not Detected AH Auto Microbiology GL SS Norovirus genogroup I+II RNA NIESHA+non-probe Ql (Stl) Not Detected *NA* (02/06/23 8:57 AM) Invalid Interpretation Code Not Detected AH Auto Microbiology GL SS Plesiomonas shigelloides Not Detected *NA* (02/06/23 8:57 AM) Invalid Interpretation Code Not Detected AH Auto Microbiology GL SS Rotavirus A RNA NIESHA+non-probe Ql (Stl) Not Detected *NA* (02/06/23 8:57 AM) Invalid Interpretation Code Not Detected AH Auto Microbiology GL SS S. enterica+bongori DNA NIESHA+non-probe Ql (Stl) Not Detected *NA* (02/06/23 8:57 AM) Invalid Interpretation Code Not Detected AH Auto Microbiology GL SS Sapovirus genogroups I+II+IV+V RNA NIESHA+non-probe Ql (Stl) Not Detected *NA* (02/06/23 8:57 AM) Invalid Interpretation Code Not Detected AH Auto Microbiology GL SS Shigella species+EIEC invasion plasmid antigen H ipaH gene NIESHA+non-probe Ql (Stl) Not Detected *NA* (02/06/23 8:57 AM) Invalid Interpretation Code Not Detected AH Auto Microbiology GL SS Stool GI Comment See Comment (02/06/23 8:57 AM) Invalid Interpretation Code AH Auto Microbiology GL SS V. cholerae DNA NIESHA+non-probe Ql (Stl) Not Detected *NA* (02/06/23 8:57 AM) Invalid Interpretation Code Not Detected AH Auto Microbiology GL SS V. cholerae+parahaemolyt icus+vulnificus DNA NIESHA+non-probe Ql (Stl) Not Detected *NA* (02/06/23 8:57 AM) Invalid Interpretation Code Not Detected AH Auto Microbiology GL SS Y. enterocolitica DNA NIESHA+non-probe Ql (Stl) Not Detected *NA* (02/06/23 8:57 AM) Invalid Interpretation Code Not Detected AH Auto Microbiology GL SS LABORATORYOrdered By: Rubi Murrell on 02-06-2023 C. difficile toxin A+B tcdA+tcdB genes NIESHA+probe Ql (Stl) Positive *ABN* (02/06/23 8:57 AM) Invalid Interpretation Code Negative AO Auto Urine SS Clostridium difficile toxin A/B PCR Int Gordon C. difficile Positive is based on detection of the tcdA and/or tcdB target. Result for tcdA and tcdB are not reported separately. Gordon C. difficile Assay results should not be used as the sole basis for diagnosis, treatment, or patient management decisions and should be interpreted in conjunction with other clinical and laboratory findings. Invalid Interpretation Code AO Auto Urine SS Basophil, Absolute 0.1 103/mcL Invalid Interpretation Code 0.0 - 0.2 10^3/mcL AO Workflow SS Basophils/100 WBC (Bld) 0.7 % Invalid Interpretation Code 0.0 - 2.5 % AO Workflow SS Eosinophil, Absolute 0.5 103/mcL Invalid Interpretation Code 0.0 - 0.4 10^3/mcL AO Workflow SS Eosinophils/100 WBC (Bld) 5.3 % Invalid Interpretation Code 0.0 - 7.0 % AO Workflow SS Erythrocyte distribution width (RBC) [Ratio] 13.3 % Invalid Interpretation Code 11.5 - 14.5 % AO Workflow SS Hematocrit (Bld) [Volume fraction] 38.6 % Invalid Interpretation Code 37.0 - 47.0 % AO Workflow SS Hemoglobin (Bld) [Mass/Vol] 13.1 G/dL Invalid Interpretation Code 12.0 - 16.0 G/dL AO Workflow SS Lymphocyte, Absolute 1.0 103/mcL Invalid Interpretation Code 0.8 - 3.9 10^3/mcL AO Workflow SS Lymphocytes/100 WBC (Bld) 11.9 % Invalid Interpretation Code 10.0 - 50.0 % AO Workflow SS MCH (RBC) [Entitic mass] 29.4 pg Invalid Interpretation Code 27.0 - 31.2 pg AO Workflow SS MCHC 33.9 G/dL Invalid Interpretation Code 33.0 - 37.0 G/dL AO Workflow SS MCV (RBC) [Entitic vol] 86.8 fL Invalid Interpretation Code 80.0 - 94.0 fL AO Workflow SS Monocyte, Absolute 0.9 103/mcL Invalid Interpretation Code 0.2 - 1.0 10^3/mcL AO Workflow SS Monocytes/100 WBC (Bld) 10.4 % Invalid Interpretation Code 1.7 - 13.0 % AO Workflow SS Neutrophil, Absolute 6.2 103/mcL Invalid Interpretation Code 2.9 - 6.2 10^3/mcL AO Workflow SS Neutrophils/100 WBC (Bld) 71.7 % Invalid Interpretation Code 37.0 - 80.0 % AO Workflow SS Platelet mean volume (Bld) [Entitic vol] 8.0 fL Invalid Interpretation Code 7.4 - 10.4 fL AO Workflow SS Platelets (Bld) [#/Vol] 253 103/mcL Invalid Interpretation Code 130 - 400 10^3/mcL AO Workflow SS RBC (Bld) [#/Vol] 4.45 106/mcL Invalid Interpretation Code 4.20 - 5.40 10^6/mcL AO Workflow SS WBC (Bld) [#/Vol] 8.6 103/mcL Invalid Interpretation Code 4.6 - 10.8 10^3/mcL AO Workflow SS LABORATORYOrdered By: SYSTEM SYSTEM on 02-06-2023 Albumin BCP dye [Mass/Vol] 3.9 G/dL Invalid Interpretation Code 3.5 - 5.0 G/dL AO ADM SS Albumin/Globulin [Mass ratio] 1.4 {ratio} Invalid Interpretation Code 1.1 - 2.5 ratio AO ADM SS ALP [Catalytic activity/Vol] 56 U/L Invalid Interpretation Code 40 - 135 U/L AO ADM SS ALT With P-5'-P [Catalytic activity/Vol] 29 U/L Invalid Interpretation Code 14 - 59 U/L AO ADM SS Amylase [Catalytic activity/Vol] 42 U/L Invalid Interpretation Code 25 - 115 U/L AO ADM SS AST With P-5'-P [Catalytic activity/Vol] 17 U/L Invalid Interpretation Code 10 - 40 U/L AO ADM SS Bilirubin [Mass/Vol] 0.3 mg/dL Invalid Interpretation Code 0.2 - 1.0 mg/dL AO ADM SS Calcium [Mass/Vol] 9.2 mg/dL Invalid Interpretation Code 8.4 - 10.2 mg/dL AO ADM SS Chloride [Moles/Vol] 103 mmol/L Invalid Interpretation Code 98 - 107 mmol/L AO ADM SS CO2 [Moles/Vol] 30 mmol/L Invalid Interpretation Code 22 - 29 mmol/L AO ADM SS Creatinine [Mass/Vol] 0.77 mg/dL Invalid Interpretation Code 0.55 - 1.02 mg/dL AO ADM SS Electrolyte Balance 6.0 mEq/L Invalid Interpretation Code 4.0 - 15.0 mEq/L AO ADM SS GFR/1.73 sq M.predicted among blacks MDRD (S/P/Bld) [Vol rate/Area] 108 ml/min/1.73sqm Invalid Interpretation Code AO Chemistry S GFR/1.73 sq M.predicted among non-blacks MDRD (S/P/Bld) [Vol rate/Area] 89 ml/min/1.73sqm Invalid Interpretation Code AO Chemistry S Globulin 2.8 G/dL Invalid Interpretation Code AO ADM SS Glucose [Mass/Vol] 100 mg/dL Invalid Interpretation Code 70 - 105 mg/dL AO ADM SS Lipase [Catalytic activity/Vol] 26 U/L Invalid Interpretation Code 16 - 77 U/L AO ADM SS Potassium [Moles/Vol] 4.2 mmol/L Invalid Interpretation Code 3.5 - 5.1 mmol/L AO ADM SS Protein [Mass/Vol] 6.7 G/dL Invalid Interpretation Code 6.4 - 8.2 G/dL AO ADM SS Sodium [Moles/Vol] 139 mmol/L Invalid Interpretation Code 136 - 145 mmol/L AO ADM SS TSH Qn 1.08 m[IU]/L Invalid Interpretation Code 0.36 - 3.74 mcIU/mL AO ADM SS Urea nitrogen [Mass/Vol] 10 mg/dL Invalid Interpretation Code 7 - 18 mg/dL AO ADM SS Urea nitrogen/Creatinine [Mass ratio] 13 ratio Invalid Interpretation Code 7 - 27 ratio AO ADM SS LIPon 02-06-2023 Lipase Level 26 U/L Normal 16-77 Pending sale to [facility] ([place]) Comment on above: Performed By: #### G FR, TSH, CBC, ADIFF, GINGER, LIP, ANEU, CMP ####[place] [address] [place], [place] [address] No Panel Informationon 02-06 Fecal Leukocytes Microscopy: Fecal Leukocytes Absent From our data, approximately 50% of enteroinvasive bacterial pathogens will not be associated with stool WBC's. [facility] STGIPCRon 02-06-2023 E. coli O157 Not Applicable Normal Not Detected [facility] ([place]) Comment on above: Order Comment: ok to cancel any duplicate orders, thanks Performed By: #### C DIFFAO, OVAP ####[place] [address] [place] [id number]#### STGIPCR ####[place] [address] Adenovirus F 40/41 Not detected Normal Not Detected [facility] ([place]) Comment on above: Order Comment: ok to cancel any duplicate orders, thanks Performed By: #### Brigid REYES, OVAP ####[address] [place] [address]#### STGIPCR ####[place] [address] Astrovirus Not detected Normal Not Detected [facility] ([place]) Comment on above: Order Comment: ok to cancel any duplicate orders, thanks Performed By: #### Brigid DIFFAO, OVAP ####[place] [address]#### STGIPCR ####[place] [address] Campy (jejuni/coli/ups) Not detected Normal Not Detected [facility] ([place]) Comment on above: Order Comment: ok to cancel any duplicate orders, thanks Performed By: #### Brigid BLACKAO, OVAP ####[place] [address]#### STGIPCR ####[place] [address] Cryptosporidium Not detected Normal Not Detected [facility] ([place]) Comment on above: Order Comment: ok to cancel any duplicate orders, thanks Performed By: #### Brigid REYES, OVAP ####[address] [place] [address]#### STGIPCR ####[place] [address] Cyclospora Not detected Normal Not Detected [facility] ([place]) Comment on above: Order Comment: ok to cancel any duplicate orders, thanks Performed By: #### Brigid DIFFAO, OVAP ####[facility] [place] [address]#### STGIPCR ####[place] [address] E. coli (ETEC) Not detected Normal Not Detected [facility] ([place]) Comment on above: Order Comment: ok to cancel any duplicate orders, thanks Performed By: #### C DIFFAO, OVAP ####[address] [place] [address]#### STGIPCR ####[place] [address] Entamoeba histolytica Not detected Normal Not Detected [facility] ([place]) Comment on above: Order Comment: ok to cancel any duplicate orders, thanks Performed By: #### C DIFFAO, OVAP ####[place] [address]#### STGIPCR ####[place] [address] Enteroaggregative E. coli (EAEC) Not detected Normal Not Detected [facility] ([place]) Comment on above: Order Comment: ok to cancel any duplicate orders, thanks Performed By: #### Brigid DIFFAO, OVAP ####[place] [address]#### STGIPCR ####[place] [address] Enteropathogenic E. coli (EPEC) Detected Abnormal Not Detected [facility] ([place]) Comment on above: Order Comment: ok to cancel any duplicate orders, thanks Performed By: #### Brigid BLACKAO, OVAP ####[place] [address]#### STGIPCR ####[place] [address] Giardia lamblia Not detected Normal Not Detected [facility] ([place]) Comment on above: Order Comment: ok to cancel any duplicate orders, thanks Performed By: #### Brigid DIFFAO, OVAP ####[address] [place] [address]#### STGIPCR ####[place] [address] Norovirus GI/GII Not detected Normal Not Detected [facility] ([place]) Comment on above: Order Comment: ok to cancel any duplicate orders, thanks Performed By: #### C DIFFAO, OVAP ####[facility] [place] [address]#### STGIPCR ####[place] [address] Plesiomonas shigelloides Not detected Normal Not Detected [facility] ([place]) Comment on above: Order Comment: ok to cancel any duplicate orders, thanks Performed By: #### Brigid DIFFAO, OVAP ####[address] [place] [place] [address]#### STGIPCR ####[place] [address] Rotavirus A Not detected Normal Not Detected [facility] ([place]) Comment on above: Order Comment: ok to cancel any duplicate orders, thanks Performed By: #### Brigid REYES, OVAP ####[place] [address]#### STGIPCR ####[place] [address] Salmonella species, stool Not detected Normal Not Detected [facility] ([place]) Comment on above: Order Comment: ok to cancel any duplicate orders, thanks Performed By: #### Brigid REYES, OVAP ####[address] [place] [address]#### STGIPCR ####[place] [address] Sapovirus I,II,IV,V Not detected Normal Not Detected [facility] ([place]) Comment on above: Order Comment: ok to cancel any duplicate orders, thanks Performed By: #### C DIFFAO, OVAP ####[address] [place] [address]#### STGIPCR ####[place] [address] Shig Tox E. coli (STEC) Not detected Normal Not Detected [facility] ([place]) Comment on above: Order Comment: ok to cancel any duplicate orders, thanks Performed By: #### Brigid DIFFAO, OVAP ####[place] [address]#### STGIPCR ####[place] [address] Shigella/Enteroinvasi ve E. coli (EIEC) Not detected Normal Not Detected [facility] ([place]) Comment on above: Order Comment: ok to cancel any duplicate orders, thanks Performed By: #### Brigid DIFFAO, OVAP ####[place] [address]#### STGIPCR ####[place] [address] Stool GI Comment See Comment Normal [facility] ([place]) Comment on above: Order Comment: ok to cancel any duplicate orders, thanks Result Comment: Viru s, bacteria, and parasite nucleic acid may persist in vivo independently of organism viability. Negative Film Array GI panel results in the setting of clinical illness compatible with gastroenteritis may be due to infection by pathogens that are not detected by this test. False negatives may occur due to genetic variability in the region targeted by the primers. Performed By: #### Brigid DIFFAO, OVAP ####[place] [address]#### STGIPCR ####[place] [address] Vibrio cholerae Not detected Normal Not Detected [facility] ([place]) Comment on above: Order Comment: ok to cancel any duplicate orders, thanks Performed By: #### Brigid REYES, OVAP ####[place] [address]#### STGIPCR ####[place] [address] Vibrio par/vul/chol Not detected Normal Not Detected [facility] ([place]) Comment on above: Order Comment: ok to cancel any duplicate orders, thanks Performed By: #### Brigid BLACKAO, OVAP ####[place] [address]#### STGIPCR ####[place] [address] Yersinia enterocolitica Not detected Normal Not Detected [facility] ([place]) Comment on above: Order Comment: ok to cancel any duplicate orders, thanks Performed By: #### C DIFFAO, OVAP ####[address] [place], [place] [address]#### STGIPCR ####[place] [id number] [place] [address] TSHon 02-06-2023 TSH Qn 1.08 m[IU]/L Normal 0.36-3.74 Pending sale to [facility] ([place]) Comment on above: Performed By: #### G FR, TSH, CBC, ADIFF, GINGER, LIP, ANEU, CMP ####[address] [place], [place] [address] CNPNon 09-24-2022 CNPN Telephone (NREUS2) ROBERTA MCNAMARA ([id number]) 1995 F Date Time Provider Department 09/24/22 ERICA ORR NREUS2 During your visit today, we recorded the following information about you: Erica Orr, Research Coordinator 09/24/2022 2:38 PM Signed Called referred pain patient on 08/19 talk about pain avoidance research study. Sent copy of informed consent to be reviewed. Called patient and left message on 08/24 and 09/10 to see if consent was reviewed. Allergies As of Date: 09/24/2022 (No Known Allergies) Date Reviewed: 07/27/2022 Reviewed by: Syeda Pinzon RN - Fully Assessed Reason for Visit: Research [[id number]] Prescriptions as of 09/24/2022 - amitriptyline (ELAVIL) 10 mg tablet Take 1 tablet by mouth daily at bedtime. - lidocaine (LIDODERM) 5 % Apply 1 Patch as directed once daily. To the left foot and ankle - meloxicam (MOBIC) 15 mg tablet - OTC PRODUCT Compound cream Problem List As Of Date 09/24/2022 Noted Resolved Complex regional pain syndrome type 1 of left l*12/15/2021 Encounter Status:Closed by ERICA ORR on 09/24/22 [facility] 08-19-2022 [facility] Telephone (NREUS2) ROBERTA MCNAMARA ([id number]) 1995 F Date Time Provider Department 08/19/22 ERICA ORR NREUS2 During your visit today, we recorded the following information about you: Erica Orr, Research Coordinator 08/19/2022 2:28 PM Signed Called and spoke with the patient giving her information about the Pain Avoidance study. The patient sounds very interested in the study. Informed consent form was sent via e-mail that was verified by patient . Will reach back out to patient next week to see if they have gone over the consent and would like to get scheduled. Allergies As of Date: 08/19/2022 (No Known Allergies) Date Reviewed: 07/27/2022 Reviewed by: Seyda Pinzon RN - Fully Assessed Reason for Visit: Research [[id number]] Prescriptions as of 08/19/2022 - amitriptyline (ELAVIL) 10 mg tablet Take 1 tablet by mouth daily at bedtime. - lidocaine (LIDODERM) 5 % Apply 1 Patch as directed once daily. To the left foot and ankle - meloxicam (MOBIC) 15 mg tablet - OTC PRODUCT Compound cream Problem List As Of Date 08/19/2022 Noted Resolved Complex regional pain syndrome type 1 of left l*12/15/2021 Encounter Status:Closed by ERICA ORR on 08/19/22 [facility] ROBERTA MCNAMARA ([id number]) 1995 F Date Time Provider Department 08/04/22 RAMIRO SOOD During your visit today, we recorded the following information about you: Carol Salas 08/04/2022 11:39 AM Signed Prior authorization for amitriptyline and lidoderm faxed to [facility]. Carol Salas 08/04/2022 2:38 PM Signed [facility] DENIED lidocaine patches and are requesting more recent medical office notes to provide medical justification for amitriptyline. Patient notified and states she will see if her television camera operator will prescribe the amitriptyline. Carol Salas Allergies As of Date: 08/04/2022 (No Known Allergies) Date Reviewed: 07/27/2022 Reviewed by: Syeda Pinzon RN - Fully Assessed Reason for Visit: Insurance Authorization [[id number]] Cmt: Amitriptyline and Lidocaine Prescriptions as of 08/04/2022 - amitriptyline (ELAVIL) 10 mg tablet Take 1 tablet by mouth daily at bedtime. - lidocaine (LIDODERM) 5 % Apply 1 Patch as directed once daily. To the left foot and ankle - meloxicam (MOBIC) 15 mg tablet - OTC PRODUCT Compound cream Problem List As Of Date 08/04/2022 Noted Resolved Complex regional pain syndrome type 1 of left l*12/15/2021 Encounter Status:Closed [facility] CAR[facility]04[facility] ROBERT[facility] MCNAMARA ([id number]) 1995 F Date Time Provider Department 08/04/22 RAMIRO SOOD During your visit today, we recorded the following information about you: Carol Salas 08/04/2022 11:28 AM Signed Patient called requesting refill of amitriptyline. Carol Gonzalez PA-C 08/04/2022 1:09 PM Signed Rx sent via Escript Allergies As of Date: 08/04/2022 (No Known Allergies) Date Reviewed: 07/27/2022 Reviewed by: Syeda Pinzon RN - Fully Assessed Reason for Visit: Refill Request [94] Primary Visit Diagnosis:Complex regional pain syndrome type 1 of left lower extremity [G90.522] Order(s):amitriptyli ne (ELAVIL) 10 mg tabletTake 1 tablet by mouth daily at bedtime.Disp: 30 tabletRfl: 1 Prescriptions as of 08/04/2022 - amitriptyline (ELAVIL) 10 mg tablet Take 1 tablet by mouth daily at bedtime. - lidocaine (LIDODERM) 5 % Apply 1 Patch as directed once daily. To the left foot and ankle - meloxicam (MOBIC) 15 mg tablet - OTC PRODUCT Compound cream Problem List As Of Date 08/04/2022 Noted Resolved Complex regional pain syndrome type 1 of left l*12/15/2021 Prescriptions ordered this encounter Disp Refills Start End AMITRIPTYLINE 10 MG TABLET 30 t* 1 08/04/2022 10/03/2022 Route: ORAL Sig: Take 1 tablet by mouth daily at bedtime. Medications Discontinued During This Encounter Prescriptions - amitriptyline (ELAVIL) 10 mg tablet (Discontinued) Take 1 tablet by mouth daily at bedtime. Encounter Status:Closed by CAROL SALAS on 08/04/22 [facility] H[facility]YSICAL[facility] HISTORY PHYSICAL HNO ID: [id number] Author: Li Pruitt MD Service: Pain Management Author Type: Fellow Type: HANDP Filed: 07/27/2022 7:53 AM Note Text: PROCEDURE EVALUATION AND HISTORY AND PHYSICAL EXAM SUBJECTIVE: Roberta Mcnamara is a 26 year old woman who presents to [facility] for left lumbar sympathetic block. This is her third (3) procedure. The patient obtained >60 % relief following the second procedure for 5 months. The pain is located in the left anterior foot and the whole left ankle and intermittently radiates up her left leg to the level of the thigh.The pain is described as a intermittent pain that is burning but she intermittently has flares of the pain associated with cold and with activity. Today, the pain intensity is rated as a 4 on a scale of 0-10. Ms. Mcnamara denies any contraindications to the procedure including , coagulopathy, infection, recent cerebral/myocardial infarct, and hemodynamic instability. She states she is NPO and has a port cdl a driver for return home. Relevant medications in the EMR reviewed: Yes ALLERGIES No Known Allergies PAST ANESTHESIA HISTORY: No history of adverse event PAST MEDICAL HISTORY Diagnosis Date Patient denies medical problems PAST SURGICAL HISTORY Procedure Laterality Date NONE OBJECTIVE: BP 135/84 Temp 36.5 ?C (97.7 ?F) (Temporal) Resp 16 Wt 70.8 kg (156 lb) LMP 08/22/2021 SpO2 98% BMI 24.43 kg/m? Physical Exam: AIRWAY: Airway Visualization of Uvula: Yes Mouth opening greater than 2 fingerbreadths: Yes Neck Full Range of Motion: Yes LUNGS: non-labored breathing on room air CARDIOVASCULAR: warm and well-perfused extremities x4 Significant changes in the patient's condition since the last [facility] visit: No Provisional Diagnosis: Complex regional pain syndrome type 1 of left lower extremity [G90.522] Planned Procedure: Left lumbar sympathetic block Li Pruitt MD July 27, 2022 [facility] NURSING PROGon 07-27-2022 NURSING PROG HNO ID: [id number] Author: Claudy Acuna RN Service: Pain Management Author Type: Registered Nurse Type: Nursing Progress Note Filed: 07/30/2022 10:18 AM Note Text: Summary: Follow up phone daryl No answer. The patient was instructed to call [phone] with the percentage of pain relief and what activities have improved. Normal [facility] NURSING PROG HNO ID: [id number] Author: Sol Bearden RN Service: Nursing Author Type: Registered Nurse Type: Nursing Progress Note Filed: 08/04/2022 8:19 AM Note Text: Summary: Post Procedure Follow Up Pt left message on our voicemail. Patient states 80% of pain relief since the procedure. What type of daily activity has improved? States she can participate in physical therapy better, able to stand longer AND walk better, overall moving around is improved. Sol Bearden RN August 04, 2022 Normal [facility] OPERATIVE NOon 07-27-2022 OPERATIVE NO HNO ID: [id number] Author: Ramiro Sood MD Service: Pain Management Author Type: Physician Type: Operative Report Filed: 07/27/2022 4:23 PM Note Text: Operative/Procedure Report Procedure details Log ID: [id number] Surgery/procedure date: 07/27/2022 Incision/procedure start time: 8:25 AM Incision close/procedure end time: 8:45 AM Pre-procedure diagnosis: Complex regional pain syndrome type 1 of left lower extremity [G90.522] Post procedure diagnosis: Complex regional pain syndrome type 1 of left lower extremity [G90.522] Procedure performed: left lumbar sympathetic block Surgeons/procedurali sts/assistants: Surgeon(s) and Role: * Ramiro Sood MD - Primary * Li Pruitt MD - Fellow , No Additional Staff Attending presence: The attending was present for the entire procedure. Anesthesia type: Local anesthetic Description of procedure IV was started prior to the procedure. Ms. Mcnamara was transported to the fluoroscopy suite and was placed in a prone position on the fluoroscopy table. The patient was monitored using pulse oximetry, intermittent blood pressure reading, capnography, and 3-lead EKG. Using sterile technique, the skin over the injection site was prepped with povidone-iodine and draped. The L3 vertebral body was identified using fluoroscopy. The base of the L3 spinous process was identified and a point 5cm to the left of midline at this level was marked. The skin and subcutaneous tissues overlying the marked site was anesthetized using 5 mL of lidocaine 1%. Under fluoroscopic guidance, a 22 gauge, 15 cm Chiba needle was slowly advanced in a superomedial direction to the anterolateral border of the L3 vertebral body. The position of the needle was confirmed using AP and lateral fluoroscopic imaging. Negative aspiration for blood or CSF was confirmed. 1 mL of Omnipaque 300 was injected through the needle confirming smooth contrast spread along the psoas fascia. 9 mL of Bupivacaine 0.25% was injected in 3cc increments (with one minute observation time after each 3cc injection) without incident and increased temperature to LLE was verified. Then 11 mL of Bupivacaine 0.25% was injected incrementally without incident. The patient had no pain on injection. The needle was removed and bleeding was nil. A sterile dressing was applied. The patient was taken to the post-block recovery area for further observation. Findings: None Complications: None Estimated blood loss: minimal Specimens: None Starting temperatures: L 21.5 C R 22.1 C Final temperatures: L 32.7 C R 21.1 C Post-procedure assessment Purposeful response to verbal or tactile stimulation: yes Neurological Status: Alert and oriented x 3, Awake, moving all extremities Post Procedure Pain Level: 0 on a scale of 0-10. Post Procedure Pain Level: 4 Postoperative Nausea/Vomiting (PONV): absent Plan - s/p left lumbar sympathetic block (#3) - RTC as needed. - The treatment plan was discussed with Ms. Mcnamara. Post procedure instructions were reviewed and she voiced understanding. Li Pruitt MD, MS Pain Medicine Fellow July 27, 2022 Teaching Statement I have interviewed and examined the patient and confirm the pertinent findings. I have discussed the case with the resident/fellow and agree with the findings and plan as documented. I certify that I was present during performance of the procedure and supervised all aspects. Ramiro Sood MD July 27, 2022 4:23 PM Normal [facility] NURSING PROGon 07-23-2022 NURSING PROG HNO ID: [id number] Author: Jack Choudhury RN Service: Nursing Author Type: Registered Nurse Type: Nursing Progress Note Filed: 07/23/2022 9:49 AM Note Text: Summary: pre procedure call Pre- Procedure Telephone Instructions Patient called to remind them of the date and time of their appointment. Procedure Date 07/27/22 Arrival to Pain Management Time: 0715 Spoke with Roberta Instructions given: 1. Do not eat or drink for 8 hours, however, you may have clear liquids (water, black coffee, apple juice, clear broth, clear gelatin, clear juices) up to 2 hours before the appointment. 2. A port cdl a driver must be present who can drive you home. If you are coming by medical transport, you must have a responsible person other than the transportation museum helper with you. 3. If you take any Blood Thinners or Insulin, please contact your prescribing physician for instructions on when to stop taking these medications. 4. Take routine medications, including heart, blood pressure, or seizure medications with water. 5. Are you currently taking Antibiotics: No 6. Please reschedule if you are ill, have an infection, a fever, or cannot make the appointment by calling [phone] (Option 2). Normal [facility] HISTORY PHYSICALon HISTORY PHYSICAL HNO ID: [id number] Author: Ramiro Sood MD Service: Pain Management Author Type: Physician Type: HANDP Filed: 01/27/2022 2:59 PM Note Text: PROCEDURE EVALUATION AND HISTORY AND PHYSICAL EXAM SUBJECTIVE: Roberta Mcnamara is a 26 year old woman who presents to [facility] for Left Lumbar Sympathetic Block. This is her second (2) procedure with the first one completed on 12/15/2021. The patient obtained > 75 % relief following the first procedure until this time. The pain is located in the left anterior foot and the whole left ankle and intermittently radiates up her left leg to the level of the thigh. The pain is described as a intermittent pain that is burning but she intermittently has flares of the pain associated with cold and with activity. Today, the pain intensity is rated as a 3 on a scale of 0-10. Naima denies any contraindications to the procedure including , coagulopathy, infection, recent cerebral/myocardial infarct and hemodynamic instability. Roberta Mcnamara states Rboerta Mcnamara is NPO and has a port cdl a driver for return home. Relevant medications in the EMR reviewed: Yes ALLERGIES No Known Allergies PAST ANESTHESIA HISTORY: No history of adverse event PAST MEDICAL HISTORY Diagnosis Date Patient denies medical problems PAST SURGICAL HISTORY Procedure Laterality Date NONE OBJECTIVE: LMP 08/22/2021 Physical Exam: AIRWAY: Airway Visualization of Uvula: Yes Mouth opening greater than 2 fingerbreadths: Yes Neck Full Range of Motion: Yes LUNGS: respirations even and unlabored CARDIAC: acyanotic Significant changes in the patient's condition since the last C[facility] visit: No Provisional Diagnosis: Complex regional pain syndrome type 1 of left lower extremity [G90.522] Planned Procedure: Left Lumbar Sympathetic Block Ameena Martinez MD January 26, 2022 Teaching Statement I have interviewed and examined the patient and confirm the pertinent findings. I have discussed the case with the resident/fellow and agree with the findings and plan as documented. Ramiro Sood MD January 27, 2022 2:59 PM [facility] NURSING PROGon 01-26-2022 NURSING PROG O ID: [id number] Author: Sol Bearden RN Service: Nursing Author Type: Registered Nurse Type: Nursing Progress Note Filed: 02/03/2022 8:13 AM Note Text: Summary: Post Procedure Follow Up Pt left message on voicemail: Patient states 100% relief of burning pain since the procedure. What type of daily activity has improved? Says she can walk 3/4 of a mile. Able to function better around the house. Sol Bearden RN February 03, 2022 [facility] NURSING PROG HNO ID: [id number] Author: Mayi Marroquin RN Service: ? Author Type: Registered Nurse Type: Nursing Progress Note Filed: 01/28/2022 1:34 PM Note Text: No answer. The patient was instructed to call [phone] with the percentage of pain relief and what activities have improved. Mayi Marroquin RN January 28, 2022 [facility] [id number] Author: Anna Duran RN Service: ? Author Type: Registered Nurse Type: Nursing Progress Note Filed: 01/26/2022 10:58 AM Note Text: Nursing Progress Note Patient Name: Roberta Mcnamara Patient Location: PAIN POOL/MC PM POOL Daily Note: Bromage is 0. This note was completed by: Anna Kearns [facility] OPERATIVE NOon 01-26-2022 OPERATIVE NO HNO ID: [id number] Author: Ramiro Sood MD Service: Pain Management Author Type: Physician Type: Operative Report Filed: 01/27/2022 2:54 PM Note Text: OPERATIVE/PROCEDURE REPORT : LOG ID: [id number] SURGERY/PROCEDURE DATE: 01/26/2022 INCISION/PROCEDURE START TIME: 10:04 AM INCISION CLOSE/PROCEDURE END TIME: PRE-OP/PRE-PROCEDURE DIAGNOSIS: Complex regional pain syndrome type 1 of left lower extremity [G90.522] POST-OP/POST-PROCEDU RE DIAGNOSIS: Complex regional pain syndrome type 1 of left lower extremity [G90.522] SURGERY/PROCEDURE(S) : LEFT LUMBAR SYMPATHETIC BLOCK SURGEON(S)/PROCEDURA LIST(S) AND AVIATION WARFARE SYSTEMS OPERATOR(S): Surgeon(s) and Role: * Ramiro Sood MD - Primary * Ameena Martinez MD - Fellow No Additional Staff The attending was present for the de portions of the procedure. ANESTHESIA: Local SURGERY/PROCEDURE DESCRIPTION: The patient was brought to the fluoroscopy suite. IV access was obtained prior to the procedure. The patient was positioned prone on the fluoroscopy table. Continuous hemodynamic monitoring was initiated including blood pressure, EKG, and pulse oximetry. The area of the lumbar spine was prepped with providone-iodine three times and draped in a sterile fashion. The L3 vertebral body was identified using fluoroscopy. The skin and subcutaneous tissues overlying the left side transverse process was anesthetized using 4 mL of lidocaine 1%. Under fluoroscopic guidance, a 22 gauge, 15 cm Chiba needle was slowly advanced to the anterolateral border of the L3 vertebral body. The position of the needle was confirmed using AP and lateral fluoroscopic imaging. Negative aspiration for blood or CSF was confirmed. 1 mL of Omnipaque 300 was injected through the needle confirming smooth contrast spread along the psoas fascia. A total of 9 mL of Bupivacaine 0.25% was injected incrementally without incident and increased temperature to LLE was verified. Then 11 mL of Bupivacaine 0.25% was injected incrementally without incident. The patient had no pain on injection. The needle was removed and bleeding was nil. A sterile dressing was applied. Roberta Mcnamara was taken to the Post-block Recovery Area for further observation. Great Toe Skin Temperature Changes: Left: 21.0 deg. C to 34 deg. C Right:21.6 deg. C to 21.5 deg. C Sedation: No The patient was taken to the post-block recovery area for further observation. FINDINGS: None COMPLICATIONS: None ESTIMATED BLOOD LOSS: minimal SPECIMENS: None POST-PROCEDURE AANDP: ASSESSMENT: Purposeful response to verbal or tactile stimulation: yes Neurological Status: Alert and oriented x 3 Post Procedure Pain Level: 2 on a scale of 0-10. Postoperative Nausea/Vomiting (PONV): absent PLAN: 1) s/p Left Lumbar Sympathetic Block. 2) RTC PRN. 3) The treatment plan was discussed with Ms. Mcnamara. Post procedure instructions were reviewed and she voiced understanding. Ameena Martinez MD January 26, 2022 Teaching Statement I have interviewed and examined the patient and confirm the pertinent findings. I have discussed the case with the resident/fellow and agree with the findings and plan as documented. I certify that I was present during performance of the procedure and supervised all aspects. Ramiro Sood MD January 27, 2022 2:54 PM [facility] NURSING PROGon 01-22-2022 NURSING PROG HNO ID: [id number] Author: Carol Valero RN Service: Pain Management Author Type: Registered Nurse Type: Nursing Progress Note Filed: 01/22/2022 3:55 PM Note Text: Pre- Procedure Telephone Instructions Patient called to remind them of the date and time of their appointment. Procedure Date/ Scheduled Procedure Time: 1015 Arrival to Pain Management Time: 0930 Spoke with patient Instructions given: 1. Do not eat or drink for 8 hours, however, you may have clear liquids (water, black coffee, apple juice, clear broth, clear gelatin, clear juices) up to 2 hours before the appointment. 2. A port cdl a driver must be present who can drive you home. If you are coming by medical transport, you must have a responsible person other than the transportation museum helper with you. 3. If you take any Blood Thinners or Insulin, please contact your prescribing physician for instructions on when to stop taking these medications. 4. Take routine medications, including heart, blood pressure, or seizure medications with water. 5. Are you currently taking Antibiotics: no 6. Please reschedule if you are ill, have an infection, a fever, or cannot make the appointment by calling [phone] (Option 2). [facility] HISTORY PHYSICALon HISTORY PHYSICAL HNO ID: [id number] Author: Ramiro Sood MD Service: Pain Management Author Type: Physician Type: HANDP Filed: 12/15/2021 8:11 PM Note Text: PROCEDURE EVALUATION AND HISTORY AND PHYSICAL EXAM SUBJECTIVE: Roberta Mcnamara is a 26 year old patient who presents to [facility] for left lumbar sympathetic block. This is Roberta Mcnamara's first (1) procedure. The pain is located in the left anterior foot and the whole left ankle and intermittently radiates up her left leg to the level of the thigh. The pain is described as a constant pain that is burning but she intermittently has flares of the pain associated with cold and with activity. Today, the pain intensity is rated as a 4 on a scale of 0-10. Naima denies any contraindications to the procedure including , coagulopathy, infection, recent cerebral/myocardial infarct and hemodynamic instability. Roberta Mcnamara states Roberta Mcnamara is NPO and has a port cdl a driver for return home. 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 Current Outpatient Medications on File Prior to Encounter Medication Sig meloxicam (MOBIC) 15 mg tablet OTC PRODUCT Compound cream lidocaine (LIDODERM) 5 % Apply 1 Patch as directed once daily. To the left foot and ankle OBJECTIVE: BP 147/87 Pulse 116 Temp 36.3 ?C (97.3 ?F) (Temporal Artery) Resp 16 Ht 170.2 cm (5' 7 ) Wt 61.7 kg (136 lb) LMP 08/22/2021 SpO2 100% BMI 21.30 kg/m? Physical Exam: Airway Visualization of Uvula: Yes Mouth opening greater than 2 fingerbreadths: Yes Neck Full Range of Motion: Yes Lung Exam : Lungs clear to auscultation Cardiac Rhythm: Regular rhythm Cardiac Rate: Regular rate Significant changes in the patient's condition since the last [facility] visit: No Provisional Diagnosis: Complex regional pain syndrome type 1 of left lower extremity [G90.522] Planned Procedure: left lumbar sympathetic block Eda Foote MD December 15, 2021 Teaching Statement I have interviewed and examined the patient and confirm the pertinent findings. I have discussed the case with the resident/fellow and agree with the findings and plan as documented. Ramiro Sood MD December 15, 2021 8:11 PM [facility] NURSING PROGon 12-15-2021 NURSING PROG HNO ID: [id number] Author: Maia Olvera RN Service: ? Author Type: Registered Nurse Type: Nursing Progress Note Filed: 12/18/2021 2:19 PM Note Text: Follow up phone call made regarding outcome of procedure. No answer. The patient was instructed to call [phone] with the percentage of pain relief and what daily activity has improved. Maia Olvera RN December 18, 2021 [facility] NURSING PROG HNO ID: [id number] Author: Sol Bearden RN Service: Nursing Author Type: Registered Nurse Type: Nursing Progress Note Filed: 12/23/2021 2:44 PM Note Text: Summary: Post Procedure Follow Up Pt left message on VM line: Patient states 75% of pain relief since the procedure. What type of daily activity has improved: States she is able to walk well for short distances, able to tolerate more intense PT sessions,tolerating the brace AND shoe all day @ work,able to do house chores AND grocery shopping better, able to tolerate slight temperature changes, AND tolerating being able to sit at desk at work.. Sol Bearden RN December 23, 2021 [facility] NURSING PROG HNO ID: [id number] Author: Rakel Landa RN Service: Pain Management Author Type: Registered Nurse Type: Nursing Progress Note Filed: 12/15/2021 12:30 PM Note Text: Bromage-patient has slight weakness in the left lower extremity. Patient stated that this is normal . Rakel Landa RN December 15, 2021 [facility] NURSING PROG HNO ID: [id number] Author: Rakel Landa RN Service: Pain Management Author Type: Registered Nurse Type: Nursing Progress Note Filed: 12/15/2021 12:24 PM Note Text: MD Dary at bedside to reassure patient that the minor shaking that she is experiencing is not concerning at this time. RN had already provided patient with warm blankets Rakel Landa RN December 15, 2021 [facility] OPERATIVE NOon 12-15-2021 OPERATIVE NO HNO ID: [id number] Author: Ramiro Sood MD Service: Pain Management Author Type: Physician Type: Operative Report Filed: 12/15/2021 7:57 PM Note Text: OPERATIVE/PROCEDURE REPORT : LOG ID: [id number] SURGERY/PROCEDURE DATE: 12/15/2021 INCISION/PROCEDURE START TIME: 11:28 AM INCISION CLOSE/PROCEDURE END TIME: 11:48 AM PRE-OP/PRE-PROCEDURE DIAGNOSIS: Complex regional pain syndrome type 1 of left lower extremity [G90.522] POST-OP/POST-PROCEDU RE DIAGNOSIS: Complex regional pain syndrome type 1 of left lower extremity [G90.522] SURGERY/PROCEDURE(S) : left lumbar sympathetic block SURGEON(S)/PROCEDURA LIST(S) AND AVIATION WARFARE SYSTEMS OPERATOR(S): Surgeon(s) and Role: * Ramiro Sood MD - Primary * Eda Foote MD - Fellow No Additional Staff The attending was present for the entire procedure. ANESTHESIA: Local SURGERY/PROCEDURE DESCRIPTION: The patient was brought to the fluoroscopy suite. IV access was obtained prior to the procedure. The patient was positioned prone on the fluoroscopy table. Continuous hemodynamic monitoring was initiated including blood pressure, EKG, and pulse oximetry. The area of the lumbar spine was prepped with providone-iodine three times and draped in a sterile fashion. The L3 vertebral body was identified using fluoroscopy. The skin and subcutaneous tissues overlying the left side transverse process was anesthetized using 5 mL of lidocaine 1%. Under fluoroscopic guidance, a 22 gauge, 15 cm Chiba needle was slowly advanced to the anterolateral border of the L3 vertebral body. The position of the needle was confirmed using oblique, AP and lateral fluoroscopic imaging. Negative aspiration for blood or CSF was confirmed. 1 mL of Omnipaque 300 was injected through the needle confirming smooth contrast spread along the psoas fascia. A total of 20 mL of Bupivacaine 0.25% was injected incrementally without incident. The patient had no pain on injection. The needle was removed and bleeding was nil. A sterile dressing was applied. Roberta Mcnamara was taken to the Post-block Recovery Area for further observation. Dr. Ramiro Sood was present during the critical and de portions of the procedure. Great Toe Skin Temperature Changes: Left: 20.5 deg. C to 35.1 deg. C Right:20.6 deg. C to 21.2 deg. C Sedation: No Eda Foote MD December 15, 2021 The patient was taken to the post-block recovery area for further observation. FINDINGS: None COMPLICATIONS: None ESTIMATED BLOOD LOSS: minimal SPECIMENS: None POST-PROCEDURE AANDP: ASSESSMENT: Purposeful response to verbal or tactile stimulation: yes Neurological Status: Alert and oriented x 3 Awake, moving all extremities Post Procedure Pain Level: 0 on a scale of 0-10. Postoperative Nausea/Vomiting (PONV): absent PLAN: 1) s/p left lumbar sympathetic block - Technically successful procedure given temperature changes and pain relief. 2) RTC in 4 weeks for repeat left lumbar sympathetic block. 3) The treatment plan was discussed with Ms. Mcnamara. Post procedure instructions were reviewed and she voiced understanding. Eda Foote MD December 15, 2021 Teaching Statement I have interviewed and examined the patient and confirm the pertinent findings. I have discussed the case with the resident/fellow and agree with the findings and plan as documented. I certify that I was present during performance of the procedure and supervised all aspects. Ramiro Sood MD December 15, 2021 7:56 PM [facility] NURSING PROGon 12-11-2021 NURSING PROG HNO ID: [id number] Author: Claudy Acuna, RN Service: Pain Management Author Type: Registered Nurse Type: Nursing Progress Note Filed: 12/11/2021 1:13 PM Note Text: Pre- Procedure Telephone Instructions Patient called to remind them of the date and time of their appointment. Spoke with pt, advised to arrive 45 minutes prior to procedure with Dr. Sood on 12/15/21. Pt to hold Meloxicam prior to procedure. Instructions given: 1. Do not eat or drink for 8 hours, however, you may have water up to 2 hours before the appointment. 2. A port cdl a driver must be present who can drive you home. If you are coming by medical transport, you must have a responsible person other than the transportation museum helper with you. 3. If you take any blood thinners or insulin, please contact your prescribing physician for instructions on when to stop taking these medications. 4. Take routine medications, including heart or blood pressure medications with water. 5. Please reschedule if you are ill, have an infection, a fever, or cannot make the appointment by calling [phone] (Option 2). [facility] Mario 11-21-2021 CNPN Telephone (ANTOINE) ROBERTA MCNAMARA ([id number]) 1995 F Date Time Provider Department 11/21/21 RAMIRO SOOD During your visit today, we recorded the following information about you: Mratha Ureña RN 11/21/2021 12:20 PM Signed Patient requesting refill for amitriptyline. Please send to [facility] pharmacy. [place]. Nicolas Sapp APRN.CNP 11/25/2021 7:07 AM Signed Chart reviewed. The following approved medication requests have been transmitted electronically. Signed Prescriptions Disp Refills amitriptyline (ELAVIL) 10 mg tablet 30 tablet 1 Sig: Take 1 tablet by mouth daily at bedtime. NIYAH: No Authorizing Provider: NICOLAS SAPP APRN.CNP Lucille Love, RN 11/25/2021 10:11 AM Signed Patient notified via that prescription has been sent to pharmacy. Allergies As of Date: 11/21/2021 (No Known Allergies) Date Reviewed: 09/05/2021 Reviewed by: Johanna Walker LPN - Fully Assessed Reason for Visit: Nurse Triage Call [[id number]] Cmt: refill Order(s):amitriptyli ne (ELAVIL) 10 mg tabletTake 1 tablet by mouth daily at bedtime.Disp: 30 tabletRfl: 1 Prescriptions as of 11/25/2021 - amitriptyline (ELAVIL) 10 mg tablet Take 1 tablet by mouth daily at bedtime. - meloxicam (MOBIC) 15 mg tablet - OTC PRODUCT Compound cream - lidocaine (LIDODERM) 5 % Apply 1 Patch as directed once daily. To the left foot and ankle Problem List As Of Date: 11/21/2021 (None) Prescriptions ordered this encounter Disp Refills Start End AMITRIPTYLINE 10 MG TABLET 30 t* 1 11/25/2021 12/25/2021 Route: ORAL Sig: Take 1 tablet by mouth daily at bedtime. Medications Discontinued During This Encounter Prescriptions - amitriptyline (ELAVIL) 10 mg tablet (Discontinued) Take 1 tablet by mouth daily at bedtime. Encounter Status:Closed by NICOLAS SAPP on 11/25/21 [facility] Vital Signs Date Time Vital Sign Value Performing Clinician Margarito anaya 05-11-2023 21:09-0400 Heart rate 112 /min DR EVELYN POWERS MD [facility] 05-11-2023 20:05-0400 Blood Pressure Cuff Size DR EVELYN POWERS MD [facility] 05-11-2023 20:05-[address] EVELYN POWERS MD [facility] 05-11-2023 20:05-[address] EVELYN POWERS MD [facility] 05-11-2023 20:05-0400 Body height 170.[address] EVELYN POWERS MD [facility] 05-11-2023 20:05-0400 Body temperature 97.52 [degF] DR EVELYN POWERS MD [facility] 05-11-2023 20:05-0400 Body weight [address] EVELYN POWERS MD [facility] 05-11-2023 20:05-0400 Diastolic Blood Pressure Non-Invasive [address] EVELYN POWERS MD [facility] 05-11-2023 20:05-0400 Heart rate 128 /min DR EVELYN POWERS MD [facility] 05-11-2023 20:05-0400 Reason For Taking VItal Signs DR EVELYN POWERS MD [facility] 05-11-2023 20:05-0400 Respiratory rate 20 /min DR EVELYN POWERS MD [facility] 05-11-2023 20:05-0400 Systolic Blood Pressure Non-Invasive [address] EVELYN POWERS MD [facility] Encounters Encounter Date Encounter Type Care Provider Facility Start: 07-19-2024 End: 07-21-2024 Refill Ananth Serrano APRN.CNP Work Phone: Pain Management Comment on above: Refill Request Start: 08-07-2023 End: 08-08-2023 ambulatory JOSE MAST WATCH HAIRSPRING ASSEMBLER-NEEDLEWORKER Facility:B Start: 08-07-2023 End: 08-07-2023 Patient encounter procedure JOSE MAST WATCH HAIRSPRING ASSEMBLER-NEEDLEWORKER [facility] Start: 07-20-2023 End: 07-25-2023 ambulatory LOVELY ECHEVERRIA DO Facility:[facility] Start: 07-20-2023 End: 07-24-2023 Outreach Lab JOSE MAST WATCH HAIRSPRING ASSEMBLER-NEEDLEWORKER [facility] Start: 05-11-2023 End: 05-11-2023 Emergency department patient visit LOVELY Aj JUWAN DO Facility:[facility] Start: 05-11-2023 End: 05-11-2023 Emergency department patient visit DR EVELYN POWERS MD [facility] Start: 04-15-2023 Refill Ananth Treviño no WATCH HAIRSPRING ASSEMBLER.NEEDLEWORKER Work Phone: Pain Management Comment on above: Refill Request Start: 02-06-2023 End: 02-07-2023 ambulatory LOVELY ECHEVERRIA DO Facility:[facility] Start: 02-06-2023 End: 02-06-2023 Patient encounter procedure LOVELY ECHEVERRIA DO [facility] Start: 01-14-2023 Refill Ramiro man MD Work Phone: Pain Management Comment on above: Refill Request Start: 12-14-2022 ambulatory Ramiro man MD Work Phone: Pain Management Comment on above: Mobility Start: 08-17-2022 ambulatory Consuelo Rosenthal Work Phone: Pain Recovery Start: 08-04-2022 Telephone encounter Ramiro cano MD Work Phone: Pain Management Comment on above: Refill Request Insurance Authorizat ion (Amitriptyline and Lidocaine) Start: 07-27-2022 End: 07-27-2022 ambulatory [facility] Facility:[facility] Start: 07-21-2022 Refill Ameena Martinez MD Work Phone: Pain Management Comment on above: Refill Request Start: 07-16-2022 Refill Ameena Martinez MD Work Phone: Pain Management Comment on above: Refill Request Start: 06-26-2022 Refill Chantale Luisana pemberton WATCH HAIRSPRING ASSEMBLER.NEEDLEWORKER Work Phone: Pain Management Comment on above: Med Change Request Start: 05-15-2022 Refill Wendypaulette luu PA-C Work Phone: Pain Management Comment on above: Refill Request Start: 04-17-2022 End: 04-17-2022 Patient encounter procedure SHIRA JENNINGS WATCH HAIRSPRING ASSEMBLER-NEEDLEWORKER [facility] Start: 01-26-2022 End: 01-26-2022 [facility] Facility:[facility] Start: 01-22-2022 Refill Wendy luu PA-C Work Phone: Pain Management Comment on above: Refill Request Start: 12-22-2021 Refill Nicolas Leigh PRN.NEEDLEWORKER Work Phone: Pain Management Comment on above: Refill Request Start: 12-15-2021 End: 12-15-2021 ambulatory [facility] Facility:[facility] Start: 11-05-2021 End: 11-05-2021 Patient encounter procedure MAYI BREAUX WATCH HAIRSPRING ASSEMBLER-NEEDLEWORKER [facility] Plan of Treatment Date Care Activity Detail Author Start: 05-28-2024 Covid-19 Vaccine () Covid-19 Vaccine () [facility] Start: 05-28-2024 Influenza vaccination Influenza Vacc ine (#1) [facility] Start: 05-28-2023 Influenza vaccination [facility] Start: 09-27-2022 [facility] Start: 05-28-2022 Influ[facility] Start: 09-27-2021 DEPRESSION ASSESSMENT [facility] Start: 05-28-2021 Influenza vaccination INFLUENZA (#1) [facility] Start: 2015 PAP TESTING PAP TESTING [facility] Start: 2015 Screening for malign ant neoplasm of cervix Cervical Cancer Screening [facility] Start: 06-08-2014 Urine microalbumin profile DTa P,Tdap,Td Vaccine (1 - Tdap) [facility] Start: 2013 Hepatitis B Vaccine (1 of 3 - 19+ 3-dose series) Hepatitis B Vaccine (1 of 3 - 19+ 3-dose series) [facility] Start: 2013 Urine microalbumin profile DTAP,TDAP ,TD (1 - Tdap) [facility] Start: 2012 Anxiety Screening Anxiety Screening [facility] Start: 2012 Depression Screening Depression Scre [facility] Start: 2012 HEPATITIS C SCREENING HEPATITIS C [facility] Start: 2012 Hepatitis C screening Hepatitis C [facility] Start: 2012 HIV SCREENING HIV SCREENING [facility] Start: 2012 HIV screening HIV Screening [facility] Start: 2006 Adult depression scr eening assessment DEPRESSION SCREENING [facility] Start: 1999 COVID-19 VACCINE (1) COVID-19 VACCIN E (1) [facility] Start: 02-20-1995 COVID-19 VACCINE (#1) COVID-19 VACCI NE (#1) [facility] Start: 1994 HEPATITIS B (1 of 3 - 3-dose series) HEPATITIS B (1 of 3 - 3-dose series) [facility] Immunizations Immunization Date Immunization Notes Care Provider Sheron gardner 06-07-2014 tetanus and diphther ia toxoids, adsorbed, preservative free, for adult use (2 Lf of tetanus toxoid and 2 Lf of diphtheria toxoid) MAYI SAEID WATCH HAIRSPRING ASSEMBLER-NEEDLEWORKER [facility] Payers Date Payer Category Payer Unknown [id number] 2023 Medicaid [id number] 2020 Unknown [facility] [id number] 2020-Present [phone] [address] [address] [place] [address] [facility] [id number] 2020 Unknown [facility] [id number] 2020-Present [phone] [address] [address] [place] [address] [facility] [id number] 2020 Unknown [id number] 1995 Unknown [id number] 1995 Unknown [id number] 1995 Unknown [id number] 1995 Unknown [id number] Social History Date Type Detail Facility Start: 03-20-2021 Never smoked t obacco (finding) [facility] Sex Assigned At [facility] Start: 09-05-2021 [facility] Start: 09-05-2021 Tobacco use and exposure Smoke less tobacco non-user [facility] Start: 09-05-2021 Alcohol intake Current drinke r of alcohol (finding) [facility] Start: 09-05-2021 History SDOH Alcohol Comment SOCIAL [facility] Start: 1995 Sex Assigned At Female [facility] Work Phone: Start: 12-05-2021 End: 07-13-2022 Exposure to SARS-CoV-2 (event) Not sure [facility] History of tobacco use Current smoker [facility] Start: 12-15-2021 Gender identity Identifies as female gender (finding) [facility] Work Phone: Start: 09-01-2021 Sexual orientation Choose not to dis close [facility] Start: 09-05-2021 History of Social function [facility] Start: 09-05-2021 Tobacco use panel [facility] Functional Status Date Assessment Result Facility 05-11-2023 Functional Status Repositions self [facility] Mental Status Date Assessment Result Facility 05-11-2023 Mental Status Oriented x 4 [facility] Clinical Notes 04-17-2022 to 07-21-2024 Telephone Encounter - Ananth Serrano APRN.CNP - 07/21/2024 4:19 PM EDTTelephone Encounter - Ananth Serrano APRN.CNP - 07/21/2024 4:19 PM EDTLabStacey Herbert DO - 08/17/2022 9:14 AM EST Note Date & Type Note Facility 07-21-2024 Telephone encounter Note The following approved medication requests have been transmitted electronically. Requested Prescriptions Refused Prescriptions Disp Refills lidocaine (LIDODERM) 5 % 30 Patch 2 Sig: Apply 1 Patch as directed once daily. To the left foot and ankle Refused By: ANANTH SERRANO Reason for Refusal: Patient needs appointment Ananth Serrano APRN.CNP [facility] 07-21-2024 Miscellaneous Notes The following approved medication requests have been transmitted electronically. Requested Prescriptions Refused Prescriptions Disp Refills lidocaine (LIDODERM) 5 % 30 Patch 2 Sig: Apply 1 Patch as directed once daily. To the left foot and ankle Refused By: ANANTH SERRANO Reason for Refusal: Patient needs appointment Ananth Serrano APRN.NEEDLEWORKER documented in this encounter [facility] 07-20-2023 Evaluation + Plan note Diagnostic Tests PendingHPV Screen, DNA Probe 07/20/23 Future Scheduled TestsBasic Metabolic Panel 07/20/23Thyroid Stimulating Hormone 07/20/23Complete Blood Count 07/20/23Lipid Profile 07/20/23 [facility] 05-11-2023 Hospital Discharge instructions Patient Education 05/11/2023 21:05:47 Anxiety Reaction Anxiety Reaction Anxiety is the feeling we all get when we think something bad might happen. It is a normal response to stress and usually causes only a mild reaction. When anxiety becomes more severe, it can interfere with daily life. In some cases, you may not even be aware of what it is you re anxious about. There may also be a genetic link or it may be a learned behavior in the home. Both psychological and physical triggers cause stress reaction. It's often a response to fear or emotional stress, real or imagined. This stress may come from home, family, work, or social relationships. During an anxiety reaction, you may feel: Helpless Nervous Depressed Irritable Your body may show signs of anxiety in many ways. You may experience: Dry mouth Shakiness Dizziness Weakness Trouble breathing Breathing fast (hyperventilating) Chest pressure Sweating Headache Nausea Diarrhea Tiredness Inability to sleep Sexual problems Home care Try to locate the sources of stress in your life. They may not be obvious. These may include: oDaily hassles of life (such as traffic jams, missed appointments, or car troubles) oMajor life changes, both good (new baby or job promotion) and bad (loss of job or loss of loved one) oOverload: feeling that you have too many responsibilities and can't take care of all of them at once oFeeling helpless or feeling that your problems are beyond what you re able to solve Notice how your body reacts to stress. Learn to listen to your body signals. This will help you take action before the stress becomes severe. When you can, do something about the source of your stress. (Avoid hassles, limit the amount of change that happens in your life at one time and take a break when you feel overloaded). Unfortunately, many stressful situations can't be avoided. It is necessary to learn how to better manage stress. There are many proven methods that will reduce your anxiety. These include simple things like exercise, good nutrition, and adequate rest. Also, there are certain techniques that are helpful: oRelaxation oBreathing exercises oVisualization oBiofeedback oMeditation For more information about this, consult your healthcare provider or go to a local bookstore and review the many books and tapes available on this subject. Follow-up care If you feel that your anxiety is not responding to self-help measures, contact your healthcare provider or make an appointment with a counselor. You may need short-term psychological counseling and temporary medicine to help you manage stress. Call 911 Call 911 if any of these happen: Trouble breathing Confusion Drowsiness or trouble wakening Fainting or loss of consciousness Rapid heart rate Seizure New chest pain that becomes more severe, lasts longer, or spreads into your shoulder, arm, neck, jaw, or back When to seek medical advice Call your healthcare provider right away if any of these happen: Your symptoms get worse Severe headache not relieved by rest and mild pain reliever [id number] [employer]. [address] [place] [address]. All rights reserved. This information is not intended as a substitute for professional medical care. Always follow your healthcare professional's instructions. Follow Up Care 05/11/2023 20:00:40 With:[facility] Address: [address] [place] [phone] When:1-2 days [facility] 05-11-2023 Note Discharge Instructions Thank you for allowing [facility] to assist you with your healthcare needs. The following is important discharge information regarding your hospital visit. Diagnosis from Today's Visit Anxiety Anxiety What to Do Next Instructions from Your Care Team Discharge Return to Work, School, or Sports (Return to Work, School, or Sports) - Ordered -- 05/14/23, May return to: work, 05/11/23 21:07:00 EDT Post Acute Orders No qualifying data available. You Need to Schedule the Following Appointments [facility] When Within 1-2 days Where: [address] [place] [phone] Allergies NKA Medications Please ask your primary doctor or pharmacist before taking any other medication not listed, including over the counter drugs, herbal medications, vitamins and or supplements as they may interact with your home medications. What How Much When Why Instructions Last Dose New LORazepam (Ativan 1 mg oral tablet) 1 tab(s) by mouth Two (2) times a day as needed for as needed for anxiety Anxiety Duration: 3 Days Printed Prescription Unchanged meloxicam (meloxicam 15 mg oral tablet) 1 tab(s) by mouth Once a day Unchanged Misc Medication Natural herbs to calm nervous system. Please take this list to your next doctor s visit. Bring all medications you take, including over the counter medications, herbals and other supplements with you to your doctor s visit. Patients and families are reminded to discard old lists and to update any records with all medication providers or retail pharmacies. Medication Leaflets lorazepam (oral) (morgan A ze radha) Ativan, Lorazepam Intensol, Loreev XR What is the most important information I should know about lorazepam? Lorazepam can slow or stop your breathing, especially if you have recently used an opioid medication or alcohol. MISUSE OF THIS MEDICINE CAN CAUSE ADDICTION, OVERDOSE, OR . Keep this medicine where others cannot get to it. You may have withdrawal symptoms if you stop using lorazepam suddenly. Ask your doctor before stopping the medicine. What is lorazepam? Lorazepam is used in adults and children at least 12 years old to treat anxiety disorders. Extended-release lorazepam is used in adults to treat anxiety disorders. Lorazepam may also be used for purposes not listed in this medication guide. What should I discuss with my healthcare provider before taking lorazepam? You should not use lorazepam if you have: narrow-angle glaucoma; or a history of allergic reaction to any benzodiazepine (lorazepam, alprazolam, diazepam, Valium, Xanax, Versed, Klonopin, and others). Tell your doctor if you have ever had: asthma, chronic obstructive pulmonary disease (COPD), sleep apnea, or other breathing disorder; drug or alcohol addiction; depression, mental illness or psychosis, mood changes, or suicidal thoughts or actions; seizures; an allergy to aspirin or yellow food dye; or kidney or liver disease. Tell your doctor if you are or plan to become . If you use lorazepam during , your baby could be born with life-threatening withdrawal symptoms, and may need medical treatment for several weeks. If you are , your name may be listed on a registry to track the effects of lorazepam on the baby. You should not breastfeed. If you do breastfeed, tell your doctor if you notice drowsiness, feeding problems, or slow weight gain in the nursing baby. How should I take lorazepam? Follow the directions on your prescription label and read all medication guides or instruction sheets. Never use lorazepam in larger amounts, or for longer than prescribed. Tell your doctor if you feel an increased urge to use more of this medicine. Never share this medicine with another person, especially someone with a history of drug addiction. MISUSE CAN CAUSE ADDICTION, OVERDOSE, OR . Keep the medicine where others cannot get to it. Selling or giving away this medicine is against the law. Measure the oral concentrate (liquid) with the supplied measuring device (not a kitchen spoon). Mix the liquid with water, juices, soda or soda-like beverages, or with semi-solid foods such as applesauce or puddings. Swallow this mixture right away. Swallow the extended-release capsule whole and do not crush, chew, break, or open it. If you cannot swallow a capsule whole, open it and mix the medicine with applesauce. Swallow the mixture right away without chewing. Do not stop using lorazepam without asking your doctor. You may have life-threatening withdrawal symptoms if you stop using the medicine suddenly after long-term use. Store tightly closed at room temperature, away from moisture and heat. Store the liquid form of lorazepam in the refrigerator. Throw away any liquid not used within 90 days. Keep your medicine in a place where no one can use it improperly. What happens if I miss a dose? Take the medicine as soon as you can, but skip the missed dose if it is almost time for your next dose. Do not take two doses at one time. What happens if I overdose? Seek emergency medical attention or call the Poison Help line at . An overdose of lorazepam can be fatal if you also drink alcohol or use other drugs that cause drowsiness or slow breathing. Overdose symptoms may include severe drowsiness, confusion, slurred speech, feeling restless, muscle weakness, loss of balance or coordination, feeling light-headed, slow heartbeats, weak or shallow breathing, or coma. What should I avoid while taking lorazepam? Do not drink alcohol. Dangerous side effects or could occur. Avoid driving or hazardous activity until you know how this medicine will affect you. Dizziness or drowsiness can cause falls, accidents, or severe injuries. What are the possible side effects of lorazepam? Get emergency medical help if you have signs of an allergic reaction: hives; difficulty breathing; swelling of your face, lips, tongue, or throat. Lorazepam can slow or stop your breathing, especially if you have recently used an opioid medication or alcohol. A person caring for you should seek emergency medical attention if you have slow breathing with long pauses, blue colored lips, or if you are hard to wake up. Call your doctor at once if you have: severe drowsiness; unusual changes in mood or behavior, being agitated or talkative; sudden restless feeling or excitement; seizures, depression, thinking problems, thoughts of suicide or hurting yourself; confusion, aggression, hallucinations; sleep problems (insomnia); vision changes; or dark urine, or jaundice (yellowing of the skin or eyes). Drowsiness or dizziness may last longer in older adults. Use caution to avoid falling or accidental injury. Common side effects may include: dizziness, sedation, drowsiness; weakness; or feeling unsteady. You will need frequent blood tests to check your blood counts and liver function. After you stop using lorazepam, seek medical help right away if you have symptoms such as: unusual muscle movements, being more active or talkative, sudden and severe changes in mood or behavior, confusion, hallucinations, seizures, suicidal thoughts or actions. Some withdrawal symptoms may last up to 12 months or longer after stopping this medicine suddenly. Tell your doctor if you have ongoing anxiety, depression, problems with memory or thinking, trouble sleeping, ringing in your ears, a burning or prickly feeling, or a crawling sensation under your skin. This is not a complete list of side effects and others may occur. Call your doctor for medical advice about side effects. You may report side effects to FDA at 8-863-ZME-3971. What other drugs will affect lorazepam? Taking lorazepam with other drugs that slow your breathing can cause dangerous side effects or . Ask your doctor before using opioid medication, a sleeping pill, a muscle relaxer, or medicine for anxiety or seizures. Tell your doctor about all your other medicines, especially: valproate, probenecid, aminophylline, or theophylline; medicine to treat mental illness; or medicine that contains an antihistamine (such as sleep medicine, cold or allergy medicine). This list is not complete and many other drugs may affect lorazepam. This includes prescription and vjoa-bck-ipuakbf medicines, vitamins, and herbal products. Not all possible drug interactions are listed here. Where can I get more information? Your doctor or pharmacist can provide more information about lorazepam. Remember, keep this and all other medicines out of the reach of children, never share your medicines with others, and use this medication only for the indication prescribed. Every effort has been made to ensure that the information provided by [employer]. ('[employer]') is accurate, up-to-date, and complete, but no guarantee is made to that effect. Drug information contained herein may be time sensitive. [employer] information has been compiled for use by healthcare practitioners and consumers in the [place] and therefore [employer] does not warrant that uses outside of the [place] are appropriate, unless specifically indicated otherwise. [employer]'s drug information does not endorse drugs, diagnose patients or recommend therapy. [employer] drug information is an informational resource designed to assist licensed healthcare practitioners in caring for their patients and/or to serve consumers viewing this service as a supplement to, and not a substitute for, the expertise, skill, knowledge and judgment of healthcare practitioners. The absence of a warning for a given drug or drug combination in no way should be construed to indicate that the drug or drug combination is safe, effective or appropriate for any given patient. [employer] does not assume any responsibility for any aspect of healthcare administered with the aid of information [employer] provides. The information contained herein is not intended to cover all possible uses, directions, precautions, warnings, drug interactions, allergic reactions, or adverse effects. If you have questions about the drugs you are taking, check with your doctor, nurse or pharmacist. Copyright 5238-8242 [employer]. Version: 10.04. Revision Date: 02/15/2023. Education Materials Anxiety Reaction Anxiety is the feeling we all get when we think something bad might happen. It is a normal response to stress and usually causes only a mild reaction. When anxiety becomes more severe, it can interfere with daily life. In some cases, you may not even be aware of what it is you re anxious about. There may also be a genetic link or it may be a learned behavior in the home. Both psychological and physical triggers cause stress reaction. It's often a response to fear or emotional stress, real or imagined. This stress may come from home, family, work, or social relationships. During an anxiety reaction, you may feel: Helpless Nervous Depressed Irritable Your body may show signs of anxiety in many ways. You may experience: Dry mouth Shakiness Dizziness Weakness Trouble breathing Breathing fast (hyperventilating) Chest pressure Sweating Headache Nausea Diarrhea Tiredness Inability to sleep Sexual problems Home care Try to locate the sources of stress in your life. They may not be obvious. These may include: oDaily hassles of life (such as traffic jams, missed appointments, or car troubles) oMajor life changes, both good (new baby or job promotion) and bad (loss of job or loss of loved one) oOverload: feeling that you have too many responsibilities and can't take care of all of them at once oFeeling helpless or feeling that your problems are beyond what you re able to solve Notice how your body reacts to stress. Learn to listen to your body signals. This will help you take action before the stress becomes severe. When you can, do something about the source of your stress. (Avoid hassles, limit the amount of change that happens in your life at one time and take a break when you feel overloaded). Unfortunately, many stressful situations can't be avoided. It is necessary to learn how to better manage stress. There are many proven methods that will reduce your anxiety. These include simple things like exercise, good nutrition, and adequate rest. Also, there are certain techniques that are helpful: oRelaxation oBreathing exercises oVisualization oBiofeedback oMeditation For more information about this, consult your healthcare provider or go to a local bookstore and review the many books and tapes available on this subject. Follow-up care If you feel that your anxiety is not responding to self-help measures, contact your healthcare provider or make an appointment with a counselor. You may need short-term psychological counseling and temporary medicine to help you manage stress. Call 911 Call 911 if any of these happen: Trouble breathing Confusion Drowsiness or trouble wakening Fainting or loss of consciousness Rapid heart rate Seizure New chest pain that becomes more severe, lasts longer, or spreads into your shoulder, arm, neck, jaw, or back When to seek medical advice Call your healthcare provider right away if any of these happen: Your symptoms get worse Severe headache not relieved by rest and mild pain reliever [id number] [employer]. [address] [place] [address]. All rights reserved. This information is not intended as a substitute for professional medical care. Always follow your healthcare professional's instructions. Additional Information VACCINATE! IT SAVES LIVES! Members of the community who have not yet received the COVID-19 vaccine and would like to receive it can visit one of [facility] vaccine clinics. There are many vaccine clinic locations within the [facility]. For locations and available times, please visit [email or web address] [email or web address] It is important to note that some COVID mobile vaccine clinics are held outdoors and may be canceled in rainy or stormy conditions. To learn more about pediatric vaccinations (ages 5-11), we invite you to visit the [facility] webpage. [email or web address]/pa [email or web address]-Lceey-Whddrqflgoq-Freque lmup-Cyhyz-Ytrrkatiz.html To learn more about the COVID-19 vaccine, we invite you to visit the CDC website for a list of frequently asked questions. https://www.cdc.gov/coronavirus/2 019-ncov/vaccines/faq.html [email or web address] Patient Portal Access Instructions: Stay connected with your healthcare team and access your personal medical information anytime with the [email or web address] Patient Portal. If you would like a full copy of your medical records please contact the [facility] Medical Records Department Wednesday through Wednesday between 8a.m. and 4:30p.m. Please follow the directions below to access the portal: 1.Access the email account you provided upon registration to the hospital.2.Look for an invitation email from [facility].3.Open the email and access the invitation link: [facility] to [facility].Fill in the required julio to create your account. Sign into [email or web address] with your username and password that you created in the above steps to stay up to date. You can then view a summary of results, a summary of your visits, and the ability to download your summaries to your computer or send the information securely to a physician. Remember that your healthcare information is confidential, so carefully consider who you will allow to register on the [facility] Patient Portal for access to your information. You can also access the [facility] Patient Portal on the [employer]. Simply click on Health Records under Health Data and then click on the [employer] logo. HOW TO SAFELY DISPOSE OF PRESCRIPTION MEDICATIONS Please use one of the following methods to safely dispose of your unused medications. 1.Use a drug disposal kit: the drug disposal pouch allows you to safely discard your old and unused drugs. Ask your nurse to give you one when you are discharged.2.Visit a local take-back location: Many local pharmacies and police departments have programs that collect old and unwanted prescription drugs. Call your local pharmacy or go to http://[employer]ology/0V4Uv1h to find one close to you.3.Make use of household items: Use cat litter or old coffee grounds to dispose medications if other options are not available. Mix your drugs with these household products, seal them in an airtight container and throw it into the garbage. Call [facility]: [phone] to be sure your drugs can be disposed of in this way. Some medicines may require a different approach.4.Never flush your medications down the toilet. IF YOU HAVE BEEN PRESCRIBED AN OPIOIDS FOR PAIN If you have been prescribed an opioid (such as hydrocodone, oxycodone or morphine), it is critical to understand the possible side effects and risks of opioid pain medications. Even when taken as directed, opioids can have several side effects including: Tolerance, meaning you might need to take more of a medication for the same pain relief. Nausea, vomiting and/or constipation. Sleepiness, dizziness, dry mouth, confusion, depression or itching. Physical dependence, meaning you have withdrawal symptoms when a medication is stopped ? this can develop within a few days. KNOW YOUR RESPONSIBILITIES It is important to know exactly how much and how often to take the opioid pain medications you are prescribed. Never take opioids in higher amounts or more often than prescribed. Do not combine opioids with alcohol or other drugs that cause drowsiness, such as benzodiazepines, also known as benzos, including diazepam and alprazolam, muscle relaxants or sleep aids. Never sell or share prescription opioids. This is illegal. Store opioids in a secure place and out of reach of others (including children, family, friends and visitors). The last page(s) of this document has been signed and retained as a CHART COPY Signatures Patient Education Materials Anxiety Reaction Medication Leaflets lorazepam (oral) My discharge plan and instructions have been reviewed and explained to me and I,ROBERTA MCNAMARA understand my current condition and have read and understand these discharge instructions. I have received a written copy of the plan/instructions. If I have questions, I am aware that I should contact my doctor. Patient/Sap Basis Administrator Signature: Date/Time: Relationship to Patient: ____ Witness Name/Signature: Date/Time: [facility] 04-15-2023 Miscellaneous Notes Chart Reviewed Patient last seen 07/27/22 for procedure. The following approved medication requests have been transmitted electronically. Requested Prescriptions Signed Prescriptions Disp Refills amitriptyline (ELAVIL) 10 mg tablet 90 tablet 0 Sig: TAKE 1 TABLET BY MOUTH EVERYDAY AT BEDTIME Authorizing Provider: ANANTH SERRANO APRN.CNP documented in this encounter [facility] 02-09-2023 Note . MICRO - Microbiology PROCEDURE: Stool Culture with Yersinia [O1 ^1 *1] SOURCE: Stool BODY SITE: COLLECTED DATE/TIME: 02/06/2023 08:57 EDT RECEIVED DATE/TIME: 02/06/2023 15:14 EDT START DATE/TIME: 02/06/2023 15:15 EDT FREE TEXT SOURCE: FINAL REPORTS Final Report [] Verified Date/Time/Personnel: 02/09/2023 09:42 EDT Normal stool kevin present. Salmonella: Negative Shigella: Negative Campylobacter: Negative Yersinia: Negative PRELIMINARY REPORTS Preliminary Report [] Verified Date/Time/Personnel: 02/08/2023 12:16 EDT Normal stool ekvin present. Negative for stool pathogens at 48 hours. Final report to follow. Order Comments O1: Stool Culture with Yersinia (Culture Stool with Yersinia) ok to cancel any duplicate orders, thanks Interpretive Data ^1: Culture Stool/Yersinia Requests for alternative pathogens including C. difficile toxin, E. coli 0157 Rotavirus, Giardia and parasites require specific requests. Performing Locations *1: This test was performed at: [address], [facility] , [facility] ([place]) 02-08-2023 Note . MICRO - Microbiology PROCEDURE: Shiga Toxins 1 and 2 [[id number]: [id number] ^1 *1] SOURCE: Stool BODY SITE: COLLECTED DATE/TIME: 02/06/2023 08:57 EDT RECEIVED DATE/TIME: 02/06/2023 15:14 EDT START DATE/TIME: 02/06/2023 15:15 EDT FREE TEXT SOURCE: FINAL REPORTS Final Report [] Verified Date/Time/Personnel: 02/08/2023 12:17 EDT Absence of Shiga toxin 1 Absence of Shiga toxin 2 Order Comments O1: Shiga Toxins 1 and 2 ok to cancel any duplicate orders, thanks Interpretive Data ^1: Shiga Toxins 1 and 2 Testing performed by immunochromatography. Performing Locations *1: This test was performed at: [address], [id number] , [facility] ([place]) 02-06-2023 Note . MICRO - Microbiology PROCEDURE: Fecal Leukocytes [*1] SOURCE: Stool BODY SITE: COLLECTED DATE/TIME: 02/06/2023 08:57 EDT RECEIVED DATE/TIME: 02/06/2023 15:14 EDT START DATE/TIME: 02/06/2023 15:15 EDT FREE TEXT SOURCE: FINAL REPORTS Final Report [] Verified Date/Time/Personnel: 02/06/2023 20:25 EDT Microscopy: Fecal Leukocytes Absent From our data, approximately 50% of enteroinvasive bacterial pathogens will not be associated with stool WBC's. Performing Locations *1: This test was performed at: [address], [id number] , [facility] ([place]) 02-06-2023 Evaluation + Plan note Diagnostic Tests PendingClostridium difficile Toxin Confirmation 02/06/23Stool Culture with Yersinia 02/06/23Ova & Parasite exam 02/06/23Shiga Toxins 1 and 2 02/06/23 [facility] 01-15-2023 Miscellaneous Notes Chart Reviewed Patient last seen 09/05/21 for ov, 07/27/22 for procedure. Patient has an appointment scheduled for 02/16/23. The following approved medication requests have been transmitted electronically. Requested Prescriptions Signed Prescriptions Disp Refills lidocaine (LIDODERM) 5 % 30 Patch 2 Sig: Apply 1 Patch as directed once daily. To the left foot and ankle Authorizing Provider: ANANTH SERRANO APRN.NEEDLEWORKER documented in this encounter [facility] 01-15-2023 Miscellaneous Notes Chart Reviewed PDMP Reviewed Patient last seen 09/05/21 OV 12/15/21 Procedure. Patient has an appointment scheduled for 02/16/23. The following approved medication requests have been transmitted electronically. Requested Prescriptions Signed Prescriptions Disp Refills amitriptyline (ELAVIL) 10 mg tablet 30 tablet 2 Sig: Take 1 tablet by mouth daily at bedtime. Authorizing Provider: ANANTH SERRANO APRN.CNP documented in this encounter [facility] 08-17-2022 Note Patient Outreach (NE AUDREY) ROBERTA MCNAMARA ([id number]) 1995 F Date Time Provider Department 08/17/22 CONSUELO HERBERT During your visit today, we recorded the following information about you: Consuelo Herbert DO 08/17/2022 9:15 AM Signed IRB#: [id number] Media Librarian: Dr. Timothy Christianson Study Name: Neurophysiological Correlates of Pain Avoidance Behavior in Chronic Pain Patients Date: August 17, 2022 Patient I have reviewed this patient's chart and deemed them eligible for the Pain Avoidance research study (IRB #[id number]) based on the inclusion/exclusion criteria. Research coordinators are able to initiate contact with the patient to see if they are interested in participation. Consuelo Herbert DO Allergies As of Date: 08/17/2022 (No Known Allergies) Date Reviewed: 07/27/2022 Reviewed by: Syeda Pinzon RN - Fully Assessed Prescriptions as of 08/17/2022 - amitriptyline (ELAVIL) 10 mg tablet Take 1 tablet by mouth daily at bedtime. - lidocaine (LIDODERM) 5 % Apply 1 Patch as directed once daily. To the left foot and ankle - meloxicam (MOBIC) 15 mg tablet - OTC PRODUCT Compound cream Problem List As Of Date 08/17/2022 Noted Resolved Complex regional pain syndrome type 1 of left l*12/15/2021 Encounter Status:Closed by CONSUELO HERBERT on 08/17/22 [facility] 08-17-2022 Note HNO ID: [id number] Author: Consuelo Herbert DO Service: ? Author Type: Physician Type: Progress Notes Filed: 08/17/2022 9:15 AM Note Text: IRB#: [id number] Media Librarian: Dr. Timothy Christianson Study Name: Neurophysiological Correlates of Pain Avoidance Behavior in Chronic Pain Patients Date: August 17, 2022 Patient I have reviewed this patient's chart and deemed them eligible for the Pain Avoidance research study (IRB #[id number]) based on the inclusion/exclusion criteria. Research coordinators are able to initiate contact with the patient to see if they are interested in participation. Consuelo Herbert DO [facility] 08-17-2022 History of Present illness Narrative IRB#: [id number] Media Librarian: Dr. Timothy Christianson Study Name: Neurophysiological Correlates of Pain Avoidance Behavior in Chronic Pain Patients Date: August 17, 2022 Patient I have reviewed this patient's chart and deemed them eligible for the Pain Avoidance research study (IRB #20-067) based on the inclusion/exclusion criteria. Research coordinators are able to initiate contact with the patient to see if they are interested in participation. Consuelo Herbert DO documented in this encounter [facility] 08-04-2022 Miscellaneous Notes [facility] DENIED lidocaine patches and are requesting more recent medical office notes to provide medical justification for amitriptyline. Patient notified and states she will see if her television camera operator will prescribe the amitriptyline. Carol Salas Prior authorization for amitriptyline and lidoderm faxed to [facility]. Carol Salas documented in this encounter [facility] 08-04-2022 Miscellaneous Notes Rx sent via Escript Patient called requesting refill of amitriptyline. Carol Salas documented in this encounter [facility] 07-27-2022 Note HNO ID: [id number] Author: Syeda Pinzon RN Service: ? Author Type: Registered Nurse Type: Nursing Progress Note Filed: 07/27/2022 8:56 AM Note Text: Bromage Score 0 [facility] 07-24-2022 Miscellaneous Notes Rx sent via Escript Patient called to follow up on request for lidocaine patches. Carol Salas documented in this encounter [facility] 06-26-2022 Miscellaneous Notes Chart Reviewed PDMP Reviewed Patient last seen 01/26/22. The following approved medication requests have been transmitted electronically. Requested Prescriptions Refused Prescriptions Disp Refills amitriptyline (ELAVIL) 10 mg tablet [Pharmacy Med Name: AMITRIPTYLINE HCL 10 MG TAB] 90 tablet 1 Sig: TAKE 1 TABLET BY MOUTH EVERYDAY AT BEDTIME Refused By: CHANTALE GILL Reason for Refusal: Records indicate that there is a valid prescription at the pharmacy Chantale Gill APRN.NEEDLEWORKER documented in this encounter [facility] 05-18-2022 Miscellaneous Notes Chart Reviewed PDMP Reviewed Patient last seen 01/26/2022. Patient has no upcoming appointment scheduled. The following approved medication requests have been transmitted electronically. Requested Prescriptions Signed Prescriptions Disp Refills amitriptyline (ELAVIL) 10 mg tablet 30 tablet 1 Sig: Take 1 tablet by mouth daily at bedtime. Authorizing Provider: CHANTALE GILL APRN.NEEDLEWORKER documented in this encounter [facility] 04-17-2022 Note ORIGINAL EXAMINATION: THREE XRAY VIEWS OF THE RIGHT KNEE04/17/2022 9:53 am COMPARISON: None. HISTORY: ORDERING SYSTEM PROVIDED HISTORY: Reason for Exam: Compensating with right leg. Anterior/sharp pain that goes down front leg. Right knee pain with injury FINDINGS: No fracture or dislocation. Tricompartmental joint spaces are within normal limits and without significant degenerative changes. Mild exaggerated lateral tilt of the patella noted. There are no suspicious osseous lesions. No significant joint effusion is seen. IMPRESSION: No acute osseous abnormality I have personally reviewed the images of this examination and agree with the resident's findings and interpretation. Interpreted by: Junaid Rivera MD Preliminary Report By: Masoud Najera Electronically signed By Junaid Rivera MD Dictated Date: 04/17/2022 9:55:11 AM Prelim Date: 04/17/2022 1:56:41 PM Sign Date: 04/17/2022 1:56:41 PM Ordering Provider: [facility] 04-17-2022 Note ORIGINAL EXAMINATION: THREE XRAY VIEWS OF THE RIGHT KNEE04/17/2022 9:53 am COMPARISON: None. HISTORY: ORDERING SYSTEM PROVIDED HISTORY: Reason for Exam: Compensating with right leg. Anterior/sharp pain that goes down front leg. Right knee pain with injury FINDINGS: No fracture or dislocation. Tricompartmental joint spaces are within normal limits and without significant degenerative changes. Mild exaggerated lateral tilt of the patella noted. There are no suspicious osseous lesions. No significant joint effusion is seen. IMPRESSION: No acute osseous abnormality I have personally reviewed the images of this examination and agree with the resident's findings and interpretation. Interpreted by: Junaid Rivera MD Preliminary Report By: Masoud Najera Electronically signed By Junaid Rivera MD Dictated Date: 04/17/2022 9:55:11 AM Prelim Date: 04/17/2022 1:56:41 PM Sign Date: 04/17/2022 1:56:41 PM Ordering Provider: SHIRA JENNINGS [facility] Evaluation + Plan note Future Appointments Appointment Date:11/10/2021 12:00:00 PM Scheduled Provider: Location:[facility] Appointment Type:VL AOH - Venous US/Doppler One Leg (for [facility] Evaluation + Plan note Future Appointments Appointment Date:04/29/2022 07:00:00 AM Scheduled Provider: Location:[facility] Appointment Type:PT Outpatient Evaluation [facility] Evaluation note Diagnosis Complex regional pain syndrome type 1 of left lower extremity- Primary Complex regional pain syndrome type 1 of left lower extremity documented in this encounter [facility] note* Diagnosis Complex regional pain syndrome type 1 of left lower extremity- Primary documented in this encounter [facility] note* Diagnosis Complex regional pain syndrome type 1 of left lower extremity documented in this encounter [facility] note* Diagnosis Complex regional pain syndrome type 1 of left lower extremity [facility] Narrative No data available for this section [facility] Hospital Discharge instructions No data available for this section [facility] Progress note No data available for this section [facility] Advance Directives Documents on File Type Date Recorded 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 Advance Directive(s) 11/17/2021 3:15 PM Advance Directive(s) 11/17/2021 3:28 PM Documents on File Type Date Recorded 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 Advance Directive(s) 01/05/2022 10:26 AM Advance Directive(s) 11/17/2021 3:15 PM Advance Directive(s) 11/17/2021 3:28 PM Summary Purpose Family History No Family History Records Found No data available for this section No data available for this section No data available for this section No Family History Records Found Additional Source Comments Source Comments (unrecognize d section and content) In the event this informatio n is protected by the Federal Confidentiality of Alcohol and Drug Abuse Patient Records regulations: The Federal rules restrict any use of the information to criminally investigate or prosecute any alcohol or drug abuse patient.[facility] the event this information is protected by the Federal Confidentiality of Alcohol and Drug Abuse Patient Records regulations: The Federal rules restrict any use of the information to criminally investigate or prosecute any alcohol or drug abuse patient.[facility] the event this information is protected by the Federal Confidentiality of Alcohol and Drug Abuse Patient Records regulations: The Federal rules restrict any use of the information to criminally investigate or prosecute any alcohol or drug abuse patient.[facility] the event this information is protected by the Federal Confidentiality of Alcohol and Drug Abuse Patient Records regulations: The Federal rules restrict any use of the information to criminally investigate or prosecute any alcohol or drug abuse patient.[facility] the event this information is protected by the Federal Confidentiality of Alcohol and Drug Abuse Patient Records regulations: The Federal rules restrict any use of the information to criminally investigate or prosecute any alcohol or drug abuse patient.[facility] the event this information is protected by the Federal Confidentiality of Alcohol and Drug Abuse Patient Records regulations: The Federal rules restrict any use of the information to criminally investigate or prosecute any alcohol or drug abuse patient.[facility] the event this information is protected by the Federal Confidentiality of Alcohol and Drug Abuse Patient Records regulations: The Federal rules restrict any use of the information to criminally investigate or prosecute any alcohol or drug abuse patient.[facility] the event this information is protected by the Federal Confidentiality of Alcohol and Drug Abuse Patient Records regulations: The Federal rules restrict any use of the information to criminally investigate or prosecute any alcohol or drug abuse patient.[facility] the event this information is protected by the Federal Confidentiality of Alcohol and Drug Abuse Patient Records regulations: The Federal rules restrict any use of the information to criminally investigate or prosecute any alcohol or drug abuse patient.[facility] the event this information is protected by the Federal Confidentiality of Alcohol and Drug Abuse Patient Records regulations: The Federal rules restrict any use of the information to criminally investigate or prosecute any alcohol or drug abuse patient.[facility] the event this information is protected by the Federal Confidentiality of Alcohol and Drug Abuse Patient Records regulations: The Federal rules restrict any use of the information to criminally investigate or prosecute any alcohol or drug abuse patient.[facility] the event this information is protected by the Federal Confidentiality of Alcohol and Drug Abuse Patient Records regulations: The Federal rules restrict any use of the information to criminally investigate or prosecute any alcohol or drug abuse patient.[facility] the event this information is protected by the Federal Confidentiality of Alcohol and Drug Abuse Patient Records regulations: The Federal rules restrict any use of the information to criminally investigate or prosecute any alcohol or drug abuse patient.[facility] the event this information is protected by the Federal Confidentiality of Alcohol and Drug Abuse Patient Records regulations: The Federal rules restrict any use of the information to criminally investigate or prosecute any alcohol or drug abuse patient.[facility] Reason for Visit (unrecogniz ed section and content) Reason Comments Refill Request Reason Onset Date Comments Refill Request 05/15/2022 Reason Comments Med Change Request Reason Onset Date Comments Refill Request 07/21/2022 Reason Onset Date Comments Refill Request 07/16/2022 Reason Comments Insurance Authorization Amitriptyline an d Lidocaine Reason Onset Date Comments Refill Request 01/14/2023 Reason Onset Date Comments Refill Request 07/19/2024 Care Teams (unrecognized sec tion and content) 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 Relationship Specialty Start Date End Date Pcp, No PCP - General 11/17/21 06/26/22 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 Relationship Specialty Start Date End Date Pcp, No PCP - General 11/17/21 06/26/22 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 Relationship Specialty Start Date End Date Pcp, No PCP - General 11/17/21 06/26/22 Care Team (unrecognized sect ion and content) Care Team Personnel Name: LOVELY ECHEVERRIA DO Position: P4 Physician - Primary Care Med Service: Active Provider Member Role: Primary Care Physician Address: Address: [address] [place] [address] Physicians [place], [place] [address] Care Team Related Persons Name: REGAN GENA Address: Home [address] [place] [phone] [place] Name: SHAHEEN MCNAMARA Name: SHAHEEN MCNAMARA INFORMATION SOURCE (unrecogn ized section and content) DATE CREATED AUTHOR 09/25/2022 [facility] DATE CREATED AUTHOR 'S VIRIDIANAIZ ATION 08/08/2023 [facility] FOR RECORDS PERTAINING TO PATIENTS WHO ARE OR HAVE BEEN ENROLLED IN A CHEMICAL DEPENDENCY/SUBSTANCEABUSE PROGRAM, SOME INFORMATION MAY BE OMITTED. This clinical summary was aggregated from multiple sources. Caution should be exercised in using it in the provision of clinical care. This summary normalizes information from multiple sources, and as a consequence, information in this document may materially change the coding, format and clinical context of patient data. In addition, data may be omitted in some cases. CLINICAL DECISIONS SHOULD BE BASED ON THE PRIMARY CLINICAL RECORDS. [facility]. provides no warranty or guarantee of the accuracy or completeness of information in this document.
[2024-07-24 09:58] LABS: Anion Gap 8 (5-15); BUN 11 mg/dL (7-18); BUN/Creat Ratio 16.3 RATIO (10-20); Calcium,Total 9.2 mg/dL (8.5-10.1); Chloride 105 mmol/L (98-107); Creatinine, Serum 0.68 mg/dL (0.55-1.02); EST Glomerular Filtration Rate 109 mL/min (>60); Est Glom Filt Rate - Afr Amer 132 mL/min (>60); Glucose 105 mg/dL (74-106); Potassium 4.2 mmol/L (3.5-5.1); Sodium Level 140 mmol/L (136-145)
[2024-07-24 10:03] LABS: Vitamin D,25 Hydroxy 17.6 ng/mL
== END | disposition home or self-care (01) ==
LOC: LAB 08:47
PROVIDERS: PCP Nurse Practitioner Adult Health; Referring Provider Podiatrist; Visit Provider Podiatrist
DX: M77.52 Other enthesopathy of left foot and ankle (principal)
CPT/HCPCS: 36415; 80048; 82306